=== PATIENT | male | born 1945 | race African-American/Black ===

== ENCOUNTER 2016-08-24 09:25 | Emergency (ER) | payer MEDICARE, BC ==
--- NOTE | ~2016-08-24 | US85 ---
[facility] A Service of [facility] & [facility] RADIOLOGY TEXT RESULTS PATIENT: BHAVNA MARTIN LOCATION: YA : 44 UNIT #: [id number] AGE: [address]: Temitope Perez MD SEX: M ORDER DR: [id number] [facility] [address] [place], [place] [address] [id number] E MR#: [id number] Acc #: [id number] NAME: BHAVNA MARTIN : 1945 SEX: M STUDY DATE/TIME: 08/24/2016 10:40 UNIT: YA ROOM: STUDY DESCRIPTION: [facility] [place] [employer] Attending Physician: Temitope Perez M.D. Ordering Physician: Temitope Perez M.D. Primary Care Physician: Milan Raymond M.D. MEDICAL IMAGING REPORT This report is preliminary unless electronic signature is present EXAM Left lower extremity venous Doppler. HISTORY Left lower extremity pain for 2 years. Numbness and tingling following 2 days. FINDINGS Color flow, grayscale, compression, and Doppler spectral wave form analysis was performed. Examination shows normal compressibility of the veins throughout with no intraluminal filling defects. There is normal phasicity of flow throughout. CONCLUSION Negative left lower extremity venous Doppler. Dictated by... Cyrus Cisneros M.D. THIS IS AN ELECTRONICALLY VERIFIED REPORT Cyrus Cisneros M.D. at 08/26/2016 5:03 PM ORLANDO/samanta TD: 08/24/2016 14:08 JOB #: [id number] MEDICAL IMAGING REPORT Page 1 of 1 COPY
[2016-08-24 09:12] LABS: BASOPHIL% 0.9 % (0-2.5); EOSINOPHIL# 0.2 X10e3 (0-0.7); EOSINOPHIL% 4.2 % (0.0-7.0); HEMATOCRIT 41.1 % (38.0-50.0); HEMOGLOBIN 13.8 gm/dL (13.0-16.0); LYMPHOCYTE# 1.4 X10e3 (1.0-3.5); LYMPHOCYTE% 30.6 % (17.0-45.0); MEAN CELL VOLUME 93.2 FL (83-96); MEAN CORPUSCULAR HEMOGLOBIN 31.2 PG (28-34); MEAN CORPUSCULAR HGB CONC 33.5 g/dL (30-36); MEAN PLATELET VOLUME 9.4 FL (6.5-11.5); MONOCYTE# 0.5 X10e3 (0-1.0); MONOCYTE% 11.7 % (3.0-12.0); NEUTROPHIL# 2.4 X10e3 (1.5-7.1); NEUTROPHIL% 52.6 % (40-75); PLATELET COUNT 108 X10e3 (140-420); RED BLOOD COUNT 4.41 X10e (3.90-5.60); RED CELL DISTRIBUTION WIDTH 16.1 % (11.0-15.5); WHITE BLOOD COUNT 4.5 X10e3 (4.0-10.5)
[2016-08-24 09:13] LABS: DIFF IND NO
[2016-08-24 09:22] LABS: ALBUMIN SERUM 4.4 g/dL (3.5-5.0); ALCOHOL BLOOD <5 mg/dL (0); ALKALINE PHOSPHATASE 68 U/L (32-92); ALT (SGPT) 32 U/L (10-40); AST (SGOT) 67 U/L (10-42); BILIRUBIN, DIRECT 0.3 mg/dL (0.0-0.2); BILIRUBIN,INDIRECT 1.7 mg/dL (0.0-0.9); BLOOD UREA NITROGEN 10 mg/dL (9-23); BUN/CREATININE RATIO 9.09; CARBON DIOXIDE 23 mmol/L (22-31); CHLORIDE 94 mmol/L (100-111); CREATININE SERUM 1.1 mg/dL (0.6-1.4); GLOM FILT RATE Estimated 77.3 mL/min (>60); GLUCOSE FASTING 107 mg/dL (70-110); MAGNESIUM 1.4 mg/dL (1.6-3.0); POTASSIUM 3.3 mmol/L (3.5-5.1); PROTEIN TOTAL SERUM 7.4 g/dL (6.0-8.3); SODIUM 136 mmol/L (135-145)
[~2016-08-24 09:25] MED LIST: ACETAMINOPHEN; AMLODIPINE BESY10 MG PO; ASPIRIN81 MG PO; ATIVAN0.5 MG; BACLOFEN10 MG PO; BENTYL10 MG PO; CARDIZEM SR PO; CENTRUM; CHLORDIAZEPOXID25 MG PO; CLARITIN10 M2 PO; CLARITIN10 M3 PO; CLONIDINE; COREG PO; COREG12.5 M1 PO; COREG12.5 MG PO; DILANTIN PO; ECOTRIN81 M1 PO; FLOMAX0.4 M1 PO; FOLIC ACID; FOLIC ACID PO; FOLIC ACID1 MG PO; GABAPENTIN300 M2 PO; GABAPENTIN300 MG PO; HAIR, SKIN & N1 EAC1 PO; IMODIUM2 MG; K-DUR20 ME1 PO; KEPPRA1000 MG PO; KEPPRA500 M1 PO; KEPPRA500 M2 PO; KETOPROFEN PO; LANOXIN PO; LIBRIUM25 MG PO; LIORESAL10 MG PO; LISINOPRIL PO; LISINOPRIL20 MG PO; LOPRESSOR PO; MAALOX SUSPENS355 ML; MAALOX SUSPENS355 ML PO; MEGA MULTIVITA1 EACH PO; MILK OF MAGNESIA; MULTI VITAMIN1 EACH PO; MULTI-VITAMIN1 EAC1 PO; NEURONTIN300 MG PO; NORVASC10 MG PO; PANTOPRAZOLE SO40 MG PO; PHENERGAN PO; PHENERGAN25 MG PO; PROTONIX; PROTONIX PO; SILVADENE TOP; STOOL SOFTENER250 MG PO; THIAMINE HCL100 M1 PO; THIAMINE HCL100 M2 PO; THIAMINE HCL100 MG PO; THIAMINE HCL50 MG; TOPAMAX25 M1 PO; TOPAMAX25 MG PO; TYLENOL325 M1 PO; UNKNOWN MEDS; VIAGRA PO; ZESTRIL40 MG PO; ZOFRAN ODT4 MG PO
== END 2016-08-24 11:15 | disposition home or self-care (01) ==
LOC: CED 09:25
PROVIDERS: Emergency Medicine
DX: M79.605 Pain in left leg (principal); F10.10 Alcohol abuse, uncomplicated; E87.6 Hypokalemia; E83.42 Hypomagnesemia; I48.91 Unspecified atrial fibrillation; F32.9 Major depressive disorder, single episode, unspecified; F41.9 Anxiety disorder, unspecified; R56.9 Unspecified convulsions; Z86.73 Personal history of transient ischemic attack (TIA), and cerebral infarction without residual deficits; Z88.0 Allergy status to penicillin; Z88.2 Allergy status to sulfonamides; Z88.8 Allergy status to other drugs, medicaments and biological substances; Z79.899 Other long term (current) drug therapy
CPT/HCPCS: 36415; 80048; 80076; 83735; 85025; 93971; 99283; 99284; G0480

== ENCOUNTER 2016-11-06 13:53 | Inpatient (IN) | payer MEDICARE, BC ==
--- NOTE | ~2016-11-06 | CO ---
Unit #: [id number] #: [id number] Patient: BHAVNA MARTIN [id number] [facility] [address] [facility]. [place], [place] [address] [id number] I MR#: [id number] NAME: BHAVNA MARTIN ROOM: 562 Age: 71 Sex: M Admission Date: 11/07/2016 : 1945 Attending Physician: Ava Huerta M.D. Primary Care Physician: Milan Raymond M.D. Consultation Date: 11/07/2016 CONSULTATION REPORT PRIMARY CARE PHYSICIAN Not listed. CONSULTING PHYSICIAN Dr. Ava Huerta. REASON FOR CONSULT Related to seizure. PATIENT IDENTIFICATION This is a 71-year-old right-handed male, evaluated in room 562 at [facility]. SOURCE OF INFORMATION Obtained from the patient as well as medical record. HISTORY OF PRESENT ILLNESS This is a 71-year-old right-handed male, with past medical history of seizure disorder, alcohol abuse, noncompliance, who presents to [facility] with report of seizure yesterday. The patient is a poor historian. Apparently, he had no events, where EMS was called for seizure activity. The patient, however, tells me that he was experiencing left leg pain and stiffness, and did not describe it as a typical seizure for him. He was apparently altered; whenever, he was brought in. His last drink was apparently a few days prior. He was given a liter of normal saline in the ER as well as 1 g of Keppra and was admitted for further evaluation and treatment. His home med list documents Dilantin 300 mg daily and Keppra 500 mg b.i.d.; however, his Dilantin level is less than 2.5. He admits to noncompliance with his medication and states that he has run out recently. Dilantin is listed on his home written med list, but he states he is not sure if he takes Dilantin. He states that he is supposed to be taking Keppra for sure, but has not been taking it as he states that he ran out. He has been seen on multiple admissions for noncompliance with his medication and also with alcohol abuse and withdrawal with DTs. Upon my evaluation of the patient earlier today, this was not discussed with me, as I was not able to speak with the nurse, but I did follow up with her. Apparently, he had an event this morning where Rapid Response was called. There was concern for possible seizure activity; however, was also concerned that the patient may have had a vasovagal response. He did not have any clear seizure activity. His heart rate was in the 180s. Initially, he told the nurse, he did feel good. He apparently had a near syncopal versus syncopal episode while sitting, but was able to come to with no postictal Unit #: [id number] #: [id number] Patient: BHAVNA MARTIN. There was no obvious seizure activity at that time. He has had no further events. Again, he was not postictal. Upon evaluation, the patient denies any complaints, states that he has chronic difficulty with balance and uses a cane and states he has chronic leg pain and numbness bilaterally. He had a head CT done without contrast on 11/06/2016 in the ER that shows moderate atrophy and chronic microvascular disease changes. No acute intracranial findings. EKG from this morning shows sinus tachycardia with a ventricular rate of 110 beats per minute. Urine drug screen is negative. He is currently alert and oriented to person and place. He has some difficulty with time, but he is able to answer, though it takes some effort. He is a poor historian regarding his history, but can answer most questions. PAST MEDICAL HISTORY 1. Multiple admissions at [facility] for alcohol withdrawal, but in the past has required ICU admission, also for seizures and noncompliance. He was last seen by Neurology in 2016 for noncompliance, seizures, and alcohol abuse. 2. Urinary tract infection. 3. Seizure disorder. 4. Possible TIA. 5. Peripheral neuropathy. 6. BPH. 7. Peripheral vascular disease. 8. Pancreatitis. 9. Atrial fibrillation, not on chronic anticoagulation. 10. Ankle surgery. 11. Shoulder surgery. 12. Circumcision. ALLERGIES 1. Penicillin. 2. Bactrim. HOME MEDICATIONS Include: 1. Flomax. 2. Magnesium. 3. Neurontin 300 mg p.o. daily. 4. Keppra 500 mg p.o. b.i.d. 5. Topamax 25 mg p.o. b.i.d. 6. Coreg. 7. Norvasc. 8. Dilantin 300 mg p.o. daily. 9. Lisinopril. 10. Folic acid. 11. Vitamin. SOCIAL HISTORY The patient lives with a friend, a roommate. He is a daily drinker. Denies illicit drug use or tobacco use. FAMILY HISTORY Positive for hypertension. REVIEW OF SYSTEMS A 14-point review of systems was done. Pertinent positives are as discussed above otherwise negative. Unit #: [id number] #: [id number] Patient: BHAVNA MARTIN PHYSICAL EXAMINATION VITAL SIGNS: Temperature 98.2. He has been afebrile. Pulse 103, respirations 16, blood pressure 122/82, oxygen saturation 100%. Height 5 feet and 11 inches. Weight 163 pounds. NEUROLOGIC: The patient is awake, alert, and oriented to person and place. He is oriented to time. He has difficulty with figuring out the date, but he can tell me the date correctly. He can name and tell me it is . He follows simple commands. No right or left confusion. No finger agnosia. No aphasia or dysarthria. Cranial nerve exam, no field cut appreciated. Eyes are conjugate without ptosis or nystagmus. Extraocular movements are intact. Sensation of face and scalp is intact. Strength of muscles of facial expression is intact. Hearing is intact to conversation. Tongue is midline. Uvula is midline. Palate elevation is normal. Head turning and shoulder shrug are unremarkable. Neck is supple. Motor exam, he demonstrates normal bulk and tone. His strength is essentially 5/5 globally with no focal deficits seen. Sensory exam, intact, however decreased sensation bilaterally distally in the lower extremities. Gait and Romberg deferred. Reflexes, unable to elicit. Toes are mute. Coordination, no past-pointing. No drift. DIAGNOSTIC STUDIES IMAGING STUDIES: Please see above. LABORATORY RESULTS: Sodium 137, potassium 3.3, chloride 98, CO2 of 25, glucose 102, BUN 9, creatinine 1.03, estimated GFR 86.8, calcium 8.9, AST 55, ALT 30, alkaline phosphatase 62, total protein 6.3, albumin 3.9, magnesium 1.5. White blood cell count 6.4, hemoglobin 12.7, hematocrit of 37.7, platelet count 122. TSH 0.61. CK 78. Dilantin level less than 2.5. Urine drug screen unremarkable. White count on arrival 7.5. IMPRESSION 1. Possible seizure. Regardless, the patient needs to take his medications. He admits to noncompliance. 2. Alcohol abuse and withdrawal. 3. Peripheral neuropathy. 4. History of atrial fibrillation. PLAN The patient recurrently presents with altered mental status and seizure activity due to noncompliance. Apparently, he takes Keppra and Dilantin at home. It is on his med list, but the patient is unsure. He certainly needs to take his medications and stop drinking or resume his home medication doses. The event this morning is questionable. Regardless, we will not make any medication adjustments as he has been noncompliant up until last evening. We will continue medications as he has not had any system. We will continue seizure precautions. Further recommendations to be made pending workup and further clinical course. Please call for any questions or issues. We thank you very much for allowing us to assist in the care of this patient. Dictated by... Mika MartelPKayleyRKayleyN. for Christina Montaño M.D. [facility]/sophia Unit #: [id number] #: [id number] Patient: BHAVNA MARTIN TD: 11/08/2016 11:47 JOB #: [id number] CONSULTATION REPORT Page 1 of 1 X Maggie Braun FINANCE MANAGER X CONSULTATION REPORT
--- NOTE | ~2016-11-06 | CT71 ---
[facility] A Service of [facility] RADIOLOGY TEXT RESULTS PATIENT: BHAVNA MARTIN LOCATION: C5 [address] : [birth year] UNIT #: [id number] AGE: [address]: Ava Huerta MD SEX: M ORDER DR: [id number] [facility] [address] [facility] [address] [facility] [place], [place] [address] [id number] E MR#: [id number] Acc #: [id number] NAME: BHAVNA MARTIN : 1945 SEX: M STUDY DATE/TIME: 11/06/2016 15:29 UNIT: [facility] ROOM: STUDY DESCRIPTION: CT Head Wo Contrast Attending Physician: Tommie Hills M.D. Ordering Physician: Tommie Hills M.D. Primary Care Physician: Milan Raymond M.D. MEDICAL IMAGING REPORT This report is preliminary unless electronic signature is present EXAMINATION Noncontrast CT head. DATE 11/06/2016 HISTORY 71-year-old male with confusion and possible seizure activity today. COMPARISON Noncontrast CT head, 04/12/2016. TECHNIQUE This CT exam was performed with one or more of the following radiation dose reduction techniques: automatic exposure control, adjustment of mA and/or kV according to patient size, and iterative reconstruction. FINDINGS Moderate generalized atrophy with compensatory prominence of ventricles and extraaxial spaces, similar to the prior exam. Hypodensities in the deep white matter of the brain are nonspecific but favored to represent changes of chronic microvascular disease and have a similar appearance to prior. No convincing CT evidence of acute or evolving infarct. Chronic bilateral maxillary sinus disease changes. Mild ethmoid and left sphenoid sinus mucosal thickening. Mastoid air cells are clear. No acute calvarial abnormality. No intracranial hemorrhage, mass lesion, mass effect or midline shift is appreciated. IMPRESSION 1. Moderate atrophy and chronic microvascular disease changes. No acute intracranial findings. [facility] A Service of [facility] & [facility] RADIOLOGY TEXT RESULTS PATIENT: BHAVNA MARTIN LOCATION: C5 5606-19 : [birth year] UNIT #: [id number] AGE: [address]: Ava Huerta MD SEX: M ORDER DR: Dictated by... Shaila Roy M.D. THIS IS AN ELECTRONICALLY VERIFIED REPORT Shaila Roy M.D. at 11/07/2016 8:36 AM DELVIN/lilian TD: 11/06/2016 16:58 JOB #: [id number] MEDICAL IMAGING REPORT Page 1 of 1 COPY
--- NOTE | ~2016-11-06 | DS ---
Unit #: [id number] #: [id number] Patient: BHAVNA MARTIN [id number] [address] [address] [id number] I MR#: [id number] NAME: BHAVNA MARTIN ROOM: 562 Age: 71 Sex: M Admission Date: 11/07/2016 : 1945 Discharge Date: Attending Physician: Camryn Hopper M.D. Primary Care Physician: Milan Raymond M.D. DISCHARGE SUMMARY DISCHARGE DIAGNOSES 1. Alcohol dependence with daily use with withdrawal. 2. Alcohol withdrawal seizures. 3. Hyperkalemia. 4. Noncompliance with medications. 5. Atrial fibrillation. Patient is not on anticoagulation likely secondary to chronic alcohol and high risk of falls. 6. Hypertension. 7. History of transient ischemic attack. 8. Peripheral neuropathy likely from alcohol abuse. 9. Benign prostatic hypertrophy. 10. Peripheral vascular disease. 11. History of pancreatitis. 12. Mild hyponatremia. 13. Hypophosphatemia. 14. Chronic thrombocytopenia likely from alcohol abuse. CONSULTATIONS 1. Dr. Grissom. 2. Dr. Montaño. PROCEDURES None. DIAGNOSTIC STUDIES LABORATORY: Sodium 134, potassium 4.6, creatinine 1.2, and phosphorus 1.8. WBC 5.9, hemoglobin 11.3, and platelets 92,000. Urine culture negative. IMAGING: CT of the head with moderate atrophy and chronic microvascular changes present. No acute changes. ALLERGIES Penicillin, sulfamethoxazole, trimethoprim. DISCHARGE MEDICATIONS 1. Flomax 0.4 p.o. daily. 2. Keppra 500 p.o. b.i.d. 3. Topamax 25 mg p.o. b.i.d. 4. Coreg 3.125 p.o. b.i.d. 5. Norvasc 10 daily. 6. Dilantin 300 at bedtime. 7. Multivitamin 1 tablet daily. 8. Thiamine 100 daily. Unit #: [id number] #: [id number] Patient: BHAVNA MARTIN 9. Folic acid 1 mg daily. HOSPITAL COURSE This is a 72-year-old admitted because of seizures and change in mental status. Change in mental status secondary to alcohol dependence and delirium tremors. Alcohol withdrawal with daily alcohol use and alcohol dependence. Seizures possibly from alcohol withdrawal. Patient is on Keppra and Dilantin. He does have a history of seizures. Patient was seen by Neurology who recommended to continue with Keppra and Dilantin. No new seizures during the hospitalization course. Anion gap metabolic acidosis likely from alcohol and starvation ketosis. Patient received IV fluids. Currently stable. History of TIA with peripheral neuropathy. Patient was seen by Physical Therapy who recommended rehab. Patient is being discharged to rehab. Discussed with the son, Ron. He agrees for him to go to rehab. Atrial fibrillation. Patient is not on anticoagulation please note likely from alcohol dependence and high risk of falls. DISPOSITION Discharge to rehab. Discharge time taken is 32 minutes. Dictated by... Bret Carmen/mimi TD: 11/12/2016 16:28 JOB #: [id number] DISCHARGE SUMMARY Page 1 of 1 X Camryn Hopper MD X DISCHARGE SUMMARY
--- NOTE | ~2016-11-06 | HP ---
Unit #: [id number] #: [id number] Patient: BHAVNA MARTIN [id number] [address] [address] [id number] I MR#: [id number] NAME: BHAVNA MARTIN ROOM: 562 Age: 71 Sex: M Admission Date: 11/06/2016 : 1945 Attending Physician: Tea Nava M.D. Primary Care Physician: Milan Raymond M.D. HISTORY AND PHYSICAL CHIEF COMPLAINT Seizure, altered mental status. HISTORY OF PRESENT ILLNESS The patient is a 71-year-old male with past medical history of alcohol abuse, seizure disorder, TIA, peripheral neuropathy, BPH, peripheral vascular disease, pancreatitis, atrial fibrillation, who presented to the emergency department for evaluation of the above. History is obtained via chart review and discussion with ER staff due to patient's altered mental status although he is able to provide some history. EMS was apparently called for seizure activity. The patient does not recall having a seizure. He states that he has not been taking his Keppra. He states that he has it but he just does not take it. He is a daily drinker. He told me that his last drink was three days ago, he told the ER it was yesterday. He denies any cough. No fever, no chest pain. He does report pain in his left arm and left leg. He was given 1 liter of normal saline in the emergency department as well as a gram of Keppra. He is being admitted to [facility] for evaluation and further treatment. Laboratory is notable for CO2 of 13 with an anion gap of 30. Urinalysis is still pending. PAST MEDICAL HISTORY 1. Admission to [facility] 04/12/2016 for alcohol abuse with delirium tremens. He also had urinary tract infection with Enterococcus. 2. History of alcohol withdrawal requiring ICU admission and IV Ativan. 3. Seizure disorder maintained on Keppra and possibly Dilantin although the patient denies taking either medication. 4. TIA. 5. Peripheral neuropathy. 6. BPH. 7. Peripheral vascular disease. 8. Pancreatitis. 9. History of atrial fibrillation not on chronic anticoagulation. PAST SURGICAL HISTORY 1. Ankle surgery. 2. Shoulder surgery. 3. Circumcision. ALLERGIES Unit #: [id number] #: [id number] Patient: BHAVNA MARTIN 1. Penicillin. 2. Bactrim. HOME MEDICATIONS Per the discharge summary from March 2016 include: 1. Flomax 0.4 mg daily. 2. Magnesium 400 mg t.i.d. 3. Neurontin 300 mg daily. 4. Keppra 500 mg b.i.d. 5. Topamax 25 mg b.i.d. 6. Coreg 12.5 mg daily. 7. Norvasc 10 mg daily. 8. Dilantin 30 mg daily. 9. Lisinopril 20 mg daily. 10. Folic acid 1 mg daily. 11. Thiamine 100 mg daily. Home medications will need to be reviewed and verified. SOCIAL HISTORY The patient is currently living with a friend. He is a daily drinker. He denies illicit drug use. No tobacco use. FAMILY HISTORY Notable for hypertension. REVIEW OF SYSTEMS A complete review of systems is negative except as indicated in the HPI. It is somewhat limited due to patient's altered mental status. PHYSICAL EXAMINATION VITAL SIGNS: Temperature 98, pulse 165, respirations 26, blood pressure 161/108, oxygen saturation 98% on room air. GENERAL: The patient is an male who is awake and alert in no acute distress. HEENT: Head is atraumatic. Mucous membranes are moist. NECK: Supple. Trachea is midline. LUNGS: Relatively clear to auscultation bilaterally with no increased work of breathing. HEART: Irregular. ABDOMEN: Soft, nontender. Bowel sounds present in all four quadrants. EXTREMITIES: Nontender with no pedal edema. NEUROLOGIC: Patient is oriented to person and place. He is somewhat tangential. PSYCHIATRIC: The patient is cooperative. He demonstrates poor insight. SKIN OF EXAMINED AREAS: Warm and dry. DIAGNOSTIC STUDIES LABORATORY: Arterial blood gas shows pH 7.399, pCO2 of 37.6, pO2 of 131 on 2 liters. Dilantin level is less than 2.5. Comprehensive metabolic panel notable for potassium of 3.4, chloride 94, CO2 is 13, anion gap is 30, glucose 168, AST 83, albumin 4.5. Alcohol level is less than 5. INR is 1. Complete blood count is notable for MCV of 100.7. Troponin is less than 0.05. IMAGING: CT of the head shows no acute intracranial findings. Chest x-ray shows no active pulmonary disease. Unit #: [id number] #: [id number] Patient: BHAVNA MARTIN CARDIOVASCULAR: EKG shows sinus tachycardia with a rate of 110 beats per minute. ASSESSMENT The patient is a 71-year-old male with: 1. Altered mental status. 2. Alcohol withdrawal. It is unclear when the patient took his last drink. He told the ER staff it was yesterday, he told me three to four days ago. He does have a history of DTs requiring IV Ativan and ICU admission in the past. 3. Seizure, possibly today. The patient has a seizure disorder and is supposed to be on Keppra and Dilantin. He is noncompliant. The patient received a gram of Keppra in the emergency department. 4. Anion gap metabolic acidosis with an anion gap of 30, possibly secondary to alcohol or starvation ketosis. Urinalysis is pending. 5. History of transient ischemic attack. 6. Peripheral neuropathy. 7. Benign prostatic hypertrophy. 8. Peripheral vascular disease. 9. History of pancreatitis. 10. History of atrial fibrillation. PLAN 1. Admit for observation to intermediate level. 2. Healthy-heart diet if passes bedside swallow. 3. TSH, B12 and folate. 4. Neuro checks. 5. Check urinalysis. 6. Urine toxicology screen. 7. Alcohol withdrawal protocol to start now. 8. Librium 25 mg p.o. q.6 h. with first dose now. 9. Keppra 500 mg IV q.12 h. 10. Seizure precautions. 11. Check magnesium level. 12. Potassium magnesium protocol. 13. Repeat BMP later this evening to follow up anion gap metabolic acidosis. 14. Check salicylate, methanol and ethylene glycol levels. 15. Check serum osmolality. 16. Serial cardiac enzymes. 17. Repeat labs in the morning. 18. SCDs for DVT prophylaxis. 19. Additional workup and consultants based on above. Dictated by Tea Nava M.D. Teresa TD: 11/06/2016 22:42 Unit #: [id number] #: [id number] Patient: BHAVNA MARTIN JOB #: [id number] HISTORY AND PHYSICAL Page 1 of 1 X Tea Nava MD X HISTORY AND PHYSICAL
--- NOTE | ~2016-11-06 | EKG ---
PATIENT: BHAVNA MARTIN UNIT #: [id number] Ventricular Rate: 110 BPM Atrial Rate: 110 BPM P-R Interval: 130 ms QRS Duration: 68 ms Q-T Interval: 360 ms QTC Calculation(Bezet): 487 ms P [place]: 30 degrees Calculated R [place]: -3 degrees Calculated T [place]: 5 degrees Diagnosis Line: Sinus tachycardia Diagnosis Line: Possible Left atrial enlargement Diagnosis Line: Poor R wave progression questionable lead position Diagnosis Line: or body habitus Diagnosis Line: Borderline ECG Diagnosis Line: When compared with ECG of 22-JUN-2016 12:36, Diagnosis Line: No significant change was found Diagnosis Line: Confirmed by CONNIE TARIQ MD ([id number]) on Diagnosis Line: 11/07/2016 7:25:43 AM INTERPRETING : DEE
--- NOTE | ~2016-11-06 | CO ---
Unit #: [id number] #: [id number] Patient: WILL NOBLES [id number] [facility] [address] [facility] [place], [place] [address] [id number] I MR#: [id number] NAME: WILL NOBLES ROOM: 562 Age: 71 Sex: M Admission Date: 11/07/2016 : 1945 Attending Physician: Camryn Hopper M.D. Primary Care Physician: Milan Raymond M.D. Consultation Date: 11/11/2016 CONSULTATION REPORT REASON FOR CONSULTATION Followup. DISCUSSION Mr. Will Nobles is a 71-year-old white male seen in room 562, bed 1, at [facility], on November 11, 2016. Patient was dressed in hospital attire and sitting comfortably in a chair. He continues to be confused and somewhat lethargic. Patient was admitted with alcohol abuse, alcohol intoxication, and currently having confusion. Patient has a history of DTs in the past. Patient was cooperative. He was irritable but denied any thoughts of harming self or others. He answered questions in short sentences and long latency. Patient denied any complaints, but according to staff, patient is still having fluctuation in his alertness. Patient's Librium was discontinued yesterday. Patient was last admitted in March 2016. There is a history of alcohol abuse but no diagnosis of dementia. Patient seems to be having some problems with memory. VITAL SIGNS Temperature 98.4, heart rate 95, respirations 16, blood pressure 117/91, and oxygen saturation 100%. REVIEW OF SYSTEMS Complete review of systems is unremarkable. MENTAL STATUS EXAMINATION General appearance: Patient was dressed casually and lying comfortably in a recliner chair. He was able to answer questions but slowly with long pauses. Patient is oriented to self and place only. Mood is labile and withdrawn. Thought process circumstantial. Thought content paranoid but denied any thoughts of harming self or others. Recent and remote memory poor. Language fair. Fund of knowledge poor. Insight and judgment are impaired. DIAGNOSES PSYCHIATRIC: 1. Alcohol use disorder, severe, F10.20. 2. Delirium, F05. 3. Psychosis not otherwise specified, F29.0. 4. Rule out major neurocognitive disorder secondary to Alzheimer disease with behavioral disturbances, F02.81. ASSESSMENT AND PLAN Unit #: [id number] #: [id number] Patient: WILL NOBLES 1. Supportive psychotherapy and psychoeducation provided to patient but patient unable to comprehend much. 2. Educated about benefits and side effects of medication and course and prognosis of illness. 3. Recommending at this time to continue with the current combination of medication. If needed, consider a low dose of haloperidol for the above-mentioned symptoms. 4. Please feel free to call with any questions at telephone number [phone]. 1. Dictated by... Bret Orr/mimi TD: 11/12/2016 16:07 JOB #: [id number] CONSULTATION REPORT Page 1 of 1 X Gelacio Grissom MD X CONSULTATION REPORT
--- NOTE | ~2016-11-06 | CO ---
Unit #: [id number] #: [id number] Patient: WILL NOBLES [id number] [address] [address] [id number] I MR#: [id number] NAME: WILL NOBLES ROOM: 562 Age: 71 Sex: M Admission Date: 11/07/2016 : 1945 Attending Physician: Ava Huerta M.D. Primary Care Physician: Milan Raymond M.D. CONSULTATION REPORT REASON FOR CONSULTATION Alcohol abuse, confusion. HISTORY OF PRESENT ILLNESS Mr. Will Nobles is a 71-year-old -Maur[place] male seen in room 562, bed one on 11/10/16. The patient dressed casually in hospital attire, lying comfortably in bed. The patient was able to answer questions appropriately, somewhat confused. The patient denied any thoughts of harming self or others or any psychotic symptoms. The patient's vital signs are 97.5, 94, 20, 139/84. The patient was assessed initially at [facility] on the and the patient was drinking one to one-half of three pints of alcohol daily for the last 35 years. The patient reported history of withdrawal symptoms, history of DTs, high blood pressure. The patient denied any suicidal or homicidal ideation at that time, presented for the detox symptoms. At that time, the patient's blood pressure was 155/102, pulse 99. BAL was 0.200. The patient scored 25 on CIWA scale and subsequently sent to [facility] where he was admitted. Patient currently on detox protocol, Librium, making progress. The patient denied any other complaints. PAST PSYCHIATRIC HISTORY Remarkable for a history of alcohol abuse. No history of other psychiatric illness. MEDICAL HISTORY History of TIA, peripheral neuropathy, BPH, peripheral vascular disease, pancreatitis, history of atrial fibrillation on chronic anticoagulation, seizure disorder. FAMILY HISTORY AND SOCIAL HISTORY The patient has a poor support system. No history of abuse. History of alcohol abuse, as mentioned above. No history of any illicit drug abuse. MEDICATION HISTORY 1. Flomax. 2. Magnesium. 3. Neurontin. 4. Keppra. 5. Topamax. 6. Coreg. 7. Norvasc. 8. Dilantin. 9. Lisinopril. 10. Folic acid. Unit #: [id number] #: [id number] Patient: WILL NOBLES 11. Thiamine. REVIEW OF SYSTEMS Complete review of systems is unremarkable except as mentioned above. MENTAL STATUS EXAMINATION VITAL SIGNS: 97.5, 94, 20, 139/84, oxygen saturation 100%. GENERAL APPEARANCE: Patient dressed casually, lying comfortably in bed. ATTENTION SPAN AND CONCENTRATION: Poor. SPEECH: Slow, long pauses. ORIENTATION: Oriented in place and person. MOOD AND AFFECT: Sad, dysphoric. THOUGHT PROCESS: Circumstantial. THOUGHT CONTENT: The patient denied any hallucination, delusions or any suicidal or homicidal ideation. RECENT AND REMOTRE MEMORY: Fair to slightly impaired. LANGUAGE: Fair. FUND OF KNOWLEDGE: Fair. INSIGHT AND JUDGMENT: Fair to slightly impaired. DIAGNOSIS Psychiatric: 1. Alcohol use disorder, severe, F10.20. 2. Delirium, F05, resolved. SECONDARY DIAGNOSIS Deferred. MEDICAL DIAGNOSIS Please refer to H and P. STRESSORS Psychosocial stressors. ASSESSMENT/PLAN 1. Supportive psychotherapy and psychoeducation provided to patient. 2. Educated about benefits and side effects of medication and course and prognosis of illness. 3. Advised to discontinue Librium at this time and we will closely monitor. If needed, consider other medication. 4. The patient to continue with the inpatient treatment and consider outpatient followup such as program at [facility] after discharge. Please feel free to call if any question. Telephone number [phone]. Dictated by... Bret Orr/hunter TD: 11/11/2016 06:06 JOB #: [id number] Unit #: [id number] #: [id number] Patient: WILL NOBLES CONSULTATION REPORT Page 1 of 1 X Gelacio Grissom MD CONSULTATION REPORT
--- NOTE | ~2016-11-06 | CR72 ---
[facility] A Service of [facility] & [facility] RADIOLOGY TEXT RESULTS PATIENT: BHAVNA MARTIN LOCATION: [facility] 562-01 : [birth year] UNIT #: [id number] AGE: [address]: Ava Huerta MD SEX: M ORDER DR: [id number] [facility] [address] [facility] [place], [place] [address] [id number] MR#: [id number] Acc #: [id number] NAME: BHAVNA MARTIN : 1945 SEX: M STUDY DATE/TIME: 11/06/2016 15:11 UNIT: [facility] ROOM: STUDY DESCRIPTION: CR Chest Single View Portable Attending Physician: Tommie Hills M.D. Ordering Physician: Tommie Hills M.D. Primary Care Physician: Milan Raymond M.D. MEDICAL IMAGING REPORT This report is preliminary unless electronic signature is present EXAM Portable chest. HISTORY Possible seizure today. TECHNIQUE Single view of the chest was obtained and compared with 04/12/2016. FINDINGS There is an old rib fracture on the left. No acute rib fractures are seen. The heart and mediastinum have a normal configuration except for tortuous aorta. Both lungs are clear. IMPRESSION Tortuous aorta. Old healed rib fracture on the left. No active pulmonary disease. Dictated by... Nish Grier M.D. THIS IS AN ELECTRONICALLY VERIFIED REPORT Nish Grier M.D. at 11/07/2016 10:30 AM RLF/gz TD: 11/06/2016 16:22 JOB #: [id number] MEDICAL IMAGING REPORT Page 1 of 1 COPY
--- NOTE | ~2016-11-06 | CO ---
Unit #: [id number] #: [id number] Patient: WILL NOBLES [id number] [facility] [address] [facility]. [place], [place] [address] [id number] I MR#: [id number] NAME: WILL NOBLES ROOM: 562 Age: 71 Sex: M Admission Date: 11/07/2016 : 1945 Attending Physician: Camryn Hopper M.D. Primary Care Physician: Milan Raymond M.D. Consultation Date: 11/12/2016 CONSULTATION REPORT REASON FOR CONSULTATION Followup. DISCUSSION Mr. Will Nobles is a 71-year-old male, seen for followup on 11/12/2016. The patient was seen in room 562, bed 1 at [facility]. The patient dressed casually in hospital attire, sitting comfortably in chair, pleasant and cooperative. The patient able to answer questions slowly with long pauses, slow response, poor memory, confused, guarded, and somewhat paranoid. The patient denied any thoughts of harming self or others. Denied any hallucinations. The patient was somewhat withdrawn, flat, sad, dysphoric mood. The patient's vital signs; temperature 97.5, pulse 88, respiratory rate 16, blood pressure 109/72, and oxygen saturation 100%. REVIEW OF SYSTEMS Complete review of systems unremarkable. MENTAL STATUS EXAMINATION General appearance; the patient dressed casually in hospital attire, sitting comfortably in chair. The patient did not show any aggression or agitation, somewhat withdrawn. Attention span and concentration, poor. Speech, slow in volume and rate. Oriented in self and place. Mood and affect, labile. Thought process, circumstantial. Thought content, guarded and paranoid, but denied any thoughts of harming self or others. Recent and remote memory, fair to poor. Language, fair. Fund of knowledge, fair. Insight and judgment, fair to slightly impaired. DIAGNOSES Psychiatric: Alcohol use disorder, severe, F10.20; delirium, F05, resolved; psychosis, not otherwise specified, F29.0; rule out major neurocognitive disorder secondary to dementia/chronic alcohol use with behavioral disturbances, F02.81. ASSESSMENT/PLAN 1. Supportive psychotherapy and psychoeducation provided to the patient. 2. Educated about benefits and side effects of medication and course and prognosis of illness. 3. Advised to continue with current combination of medication and make further adjustment of medication if needed. The patient will be going to rehab this week. Please feel free to call if any question, telephone #[phone]. Unit #: [id number] #: [id number] Patient: WILL NOBLSE Dictated by... Bret Orr/sophia TD: 11/13/2016 23:51 JOB #: [id number] CONSULTATION REPORT Page 1 of 1 X Gelacio Grissom MD X CONSULTATION REPORT
[2016-11-06 14:52] LABS: POC - CKMB 1.1 ng/mL (0.0-7.9); POC - TROPONIN <0.05 ng/mL (<=0.05)
[2016-11-06 14:57] LABS: BASOPHIL% 0.5 % (0-2.5); EOSINOPHIL% 0.3 % (0.0-7.0); HEMATOCRIT 41.9 % (38.0-50.0); HEMOGLOBIN 13.8 gm/dL (13.0-16.0); MEAN CELL VOLUME 100.7 FL (83-96); MEAN CORPUSCULAR HEMOGLOBIN 33.1 PG (28-34); MEAN CORPUSCULAR HGB CONC 32.9 g/dL (30-36); MEAN PLATELET VOLUME 9.3 FL (6.5-11.5); MONOCYTE# 0.8 X10e3 (0-1.0); MONOCYTE% 10.3 % (3.0-12.0); NEUTROPHIL# 4.6 X10e3 (1.5-7.1); NEUTROPHIL% 61.9 % (40-75); PLATELET COUNT 171 X10e3 (140-420); RED BLOOD COUNT 4.16 X10e (3.90-5.60); WHITE BLOOD COUNT 7.5 X10e3 (4.0-10.5)
[2016-11-06 14:58] LABS: DIFF IND NO
[2016-11-06 15:09] LABS: PARTIAL THROMBOPLASTIN TIME 22.9 SECONDS (23.5-31.3); PROTHROMBIN TIME (PATIENT) 11.3 SECONDS (10.0-11.7)
[2016-11-06 15:20] LABS: ALBUMIN SERUM 4.5 g/dL (3.5-5.0); ALKALINE PHOSPHATASE 75 U/L (32-92); ALT (SGPT) 38 U/L (10-40); AST (SGOT) 83 U/L (10-42); BILIRUBIN, DIRECT 0.5 mg/dL (0.0-0.2); BILIRUBIN,INDIRECT 1.2 mg/dL (0.0-0.9); BILIRUBIN,TOTAL 1.7 mg/dL (0.2-2.0); BLOOD UREA NITROGEN 12 mg/dL (9-23); CALCIUM SERUM 9.1 mg/dL (8.4-10.2); CARBON DIOXIDE 13 mmol/L (22-31); CHLORIDE 94 mmol/L (100-111); CREATININE SERUM 1.1 mg/dL (0.6-1.4); GLOM FILT RATE Estimated 77.3 mL/min (>60); GLUCOSE FASTING 168 mg/dL (70-110); POTASSIUM 3.4 mmol/L (3.5-5.1); PROTEIN TOTAL SERUM 7.4 g/dL (6.0-8.3); SODIUM 137 mmol/L (135-145)
[2016-11-06 15:21] LABS: ALCOHOL BLOOD <5 mg/dL (0)
[2016-11-06 16:42] LABS: ARTERIAL BLD GAS O2 SATURATION 97.7 % (90.0-100.0); ARTERIAL BLOOD GAS ALLEN TEST NORMAL; ARTERIAL BLOOD GAS ART SITE RIGHT RADIAL; ARTERIAL BLOOD GAS CARBOXY HB 0.9 %sat (0.0-9.0); ARTERIAL BLOOD GAS HCO3 23.3 mmol/L; ARTERIAL BLOOD GAS MET HB 0.6 %sat (0.0-2.0); ARTERIAL BLOOD GAS PCO2 37.6 mmHg (35.0-45.0); ARTERIAL BLOOD GAS pH 7.399 (7.350-7.450); ARTERIAL DRAW? YES
[2016-11-06 16:43] LABS: ARTERIAL BLOOD GAS DELIVERY NASAL CANNULA
[2016-11-06 19:04] LABS: URINE SOURCE CLEAN CATCH
[2016-11-06 19:07] LABS: AMPHETAMINE NEG (NEG); BARBITURATES NEG (NEG); BENZODIAZEPINES NEG (NEG); COCAINE NEG (NEG); MARIJUANA NEG (NEG); OPIATES NEG (NEG); TRICYCLIC ANTIDEPRESSANTS NEG (NEG); U METHADONE NEG (NEG)
[2016-11-06 19:11] LABS: URINE APPEARANCE CLEAR; URINE BILIRUBIN NEG (NEG); URINE BLOOD NEG (NEG); URINE COLOR YELLOW; URINE GLUCOSE NEG (NEG); URINE KETONE 1+ (NEG); URINE LEUKOCYTE ESTERASE NEG (NEG); URINE NITRATE NEG (NEG); URINE PROTEIN NEG (NEG); URINE SPECIFIC GRAVITY 1.016 (1.003-1.035)
[2016-11-06 19:15] LABS: CULTURE INDICATED? NO
[2016-11-06 19:26] LABS: BUN/CREATININE RATIO 11.11; CALCIUM SERUM 9.1 mg/dL (8.4-10.2); CREATININE SERUM 0.9 mg/dL (0.6-1.4); GLOM FILT RATE Estimated 98.5 mL/min (>60); MAGNESIUM 1.8 mg/dL (1.6-3.0); POTASSIUM 3.4 mmol/L (3.5-5.1); SALICYLATE <4.0 mg/dL
[2016-11-06 19:55] LABS: %MB 2.4 % (0.0-4.0); MB 1.9 ng/ml
[2016-11-06 20:17] LABS: FOLATE (FOLIC ACID) 6.6 ng/mL (>5.8)
[2016-11-07 01:57] LABS: BASOPHIL% 0.7 % (0-2.5); EOSINOPHIL# 0.1 X10e3 (0-0.7); EOSINOPHIL% 0.8 % (0.0-7.0); HEMATOCRIT 37.7 % (38.0-50.0); HEMOGLOBIN 12.7 gm/dL (13.0-16.0); LYMPHOCYTE# 1.8 X10e3 (1.0-3.5); LYMPHOCYTE% 28.8 % (17.0-45.0); MEAN CELL VOLUME 98.1 FL (83-96); MEAN CORPUSCULAR HGB CONC 33.6 g/dL (30-36); MEAN PLATELET VOLUME 8.5 FL (6.5-11.5); MONOCYTE# 0.9 X10e3 (0-1.0); MONOCYTE% 13.8 % (3.0-12.0); NEUTROPHIL# 3.6 X10e3 (1.5-7.1); NEUTROPHIL% 55.9 % (40-75); PLATELET COUNT 122 X10e3 (140-420); RED BLOOD COUNT 3.84 X10e (3.90-5.60); RED CELL DISTRIBUTION WIDTH 15.2 % (11.0-15.5); WHITE BLOOD COUNT 6.4 X10e3 (4.0-10.5)
[2016-11-07 02:01] LABS: DIFF IND NO
[2016-11-07 02:47] LABS: %MB 1.7 % (0.0-4.0); MB 1.5 ng/ml
[2016-11-07 03:37] LABS: ALBUMIN SERUM 3.9 g/dL (3.5-5.0); BILIRUBIN,TOTAL 2.7 mg/dL (0.2-2.0); CALCIUM SERUM 8.9 mg/dL (8.4-10.2); GLOM FILT RATE Estimated 86.8 mL/min (>60); MAGNESIUM 1.5 mg/dL (1.6-3.0); POTASSIUM 3.3 mmol/L (3.5-5.1); PROTEIN TOTAL SERUM 6.3 g/dL (6.0-8.3)
[2016-11-08] MEDS ORDERED: BACLOFEN10 MG PO (07:34)
[2016-11-08] MEDS ORDERED: COREG12.5 MG PO (07:35)
[2016-11-08] MEDS ORDERED: FOLIC ACID1 MG PO (07:36)
[2016-11-08] MEDS ORDERED: THIAMINE HCL100 M2 PO (07:40)
[2016-11-08] MEDS ORDERED: GABAPENTIN300 MG PO (07:41)
[2016-11-08] MEDS ORDERED: LISINOPRIL20 MG PO (07:42)
[2016-11-08 08:11] LABS: ALBUMIN SERUM 3.6 g/dL (3.5-5.0); BILIRUBIN,TOTAL 1.2 mg/dL (0.2-2.0); CREATININE SERUM 1.2 mg/dL (0.6-1.4); GLOM FILT RATE Estimated 69.6 mL/min (>60); MAGNESIUM 1.9 mg/dL (1.6-3.0); POTASSIUM 3.3 mmol/L (3.5-5.1); PROTEIN TOTAL SERUM 6.2 g/dL (6.0-8.3)
[2016-11-08 08:13] LABS: HEMATOCRIT 34.9 % (38.0-50.0); HEMOGLOBIN 11.6 gm/dL (13.0-16.0); MEAN CELL VOLUME 100.6 FL (83-96); MEAN CORPUSCULAR HEMOGLOBIN 33.4 PG (28-34); MEAN CORPUSCULAR HGB CONC 33.2 g/dL (30-36); MEAN PLATELET VOLUME 9.9 FL (6.5-11.5); RED BLOOD COUNT 3.47 X10e (3.90-5.60); RED CELL DISTRIBUTION WIDTH 14.8 % (11.0-15.5); WHITE BLOOD COUNT 4.5 X10e3 (4.0-10.5)
[2016-11-08 08:18] LABS: PROTHROMBIN TIME (PATIENT) 11.3 SECONDS (10.0-11.7)
[2016-11-09 06:17] LABS: HEMATOCRIT 33.7 % (38.0-50.0); HEMOGLOBIN 11.3 gm/dL (13.0-16.0); MEAN CELL VOLUME 100.1 FL (83-96); MEAN CORPUSCULAR HEMOGLOBIN 33.5 PG (28-34); MEAN CORPUSCULAR HGB CONC 33.4 g/dL (30-36); MEAN PLATELET VOLUME 10.1 FL (6.5-11.5); RED BLOOD COUNT 3.37 X10e (3.90-5.60); RED CELL DISTRIBUTION WIDTH 15.1 % (11.0-15.5); WHITE BLOOD COUNT 5.9 X10e3 (4.0-10.5)
[2016-11-09 06:55] LABS: ALBUMIN SERUM 3.6 g/dL (3.5-5.0); BILIRUBIN,TOTAL 0.5 mg/dL (0.2-2.0); BUN/CREATININE RATIO 10.9; CREATININE SERUM 1.1 mg/dL (0.6-1.4); GLOM FILT RATE Estimated 77.3 mL/min (>60); MAGNESIUM 1.6 mg/dL (1.6-3.0); POTASSIUM 4.4 mmol/L (3.5-5.1); PROTEIN TOTAL SERUM 5.9 g/dL (6.0-8.3)
[2016-11-10 07:49] LABS: BUN/CREATININE RATIO 11.81; CALCIUM SERUM 10.1 mg/dL (8.4-10.2); CREATININE SERUM 1.1 mg/dL (0.6-1.4); GLOM FILT RATE Estimated 77.3 mL/min (>60); MAGNESIUM 1.8 mg/dL (1.6-3.0); POTASSIUM 5.4 mmol/L (3.5-5.1)
[2016-11-11 08:17] LABS: BUN/CREATININE RATIO 12.14; CALCIUM SERUM 9.6 mg/dL (8.4-10.2); CREATININE SERUM 1.4 mg/dL (0.6-1.4); GLOM FILT RATE Estimated 57.8 mL/min (>60); MAGNESIUM 1.7 mg/dL (1.6-3.0); POTASSIUM 4.8 mmol/L (3.5-5.1)
[2016-11-12 07:54] LABS: BUN/CREATININE RATIO 15.83; CALCIUM SERUM 10.1 mg/dL (8.4-10.2); CREATININE SERUM 1.2 mg/dL (0.6-1.4); GLOM FILT RATE Estimated 69.6 mL/min (>60); MAGNESIUM 1.7 mg/dL (1.6-3.0); PHOSPHOROUS 1.8 mg/dL (2.5-4.6); POTASSIUM 4.6 mmol/L (3.5-5.1)
== END 2016-11-12 19:23 | DRG 897 ==
LOC: CED 13:53 → C5B 18:20 → CED 18:20 → CEDOF 18:20 → C5B 18:20 → CEDOF 18:35 → CED 18:35 → CEDOF 18:35 → C5B 18:35 → CEDOF 20:03 → C5B 20:03 → CEDOF 11-07 14:15 → C5B 11-07 14:15
PROVIDERS: Emergency Medicine; Family Medicine; Internal Medicine; Internal Medicine Endocrinology, Diabetes & Metabolism
PROC: 05H533Z Insertion of Infusion Device into Right Subclavian Vein, Percutaneous Approach (ICD-10-PCS; principal; 2016-11-08)
PROC: B546ZZA Ultrasonography of Right Subclavian Vein, Guidance (ICD-10-PCS; 2016-11-08)
DX: F10.239 Alcohol dependence with withdrawal, unspecified (principal); E87.2 Acidosis; F05 Delirium due to known physiological condition; D69.59 Other secondary thrombocytopenia; E83.39 Other disorders of phosphorus metabolism; G40.509 Epileptic seizures related to external causes, not intractable, without status epilepticus; I48.91 Unspecified atrial fibrillation; G62.1 Alcoholic polyneuropathy; E87.5 Hyperkalemia; E87.1 Hypo-osmolality and hyponatremia; F02.81 Dementia in other diseases classified elsewhere, unspecified severity, with behavioral disturbance; N40.0 Benign prostatic hyperplasia without lower urinary tract symptoms; I73.9 Peripheral vascular disease, unspecified; F29 Unspecified psychosis not due to a substance or known physiological condition; Z88.0 Allergy status to penicillin; Z86.73 Personal history of transient ischemic attack (TIA), and cerebral infarction without residual deficits; M62.3 Immobility syndrome (paraplegic); Z91.14 Patient's other noncompliance with medication regimen; Y90.0 Blood alcohol level of less than 20 mg/100 ml
CPT/HCPCS: 36415; 36600; 70450; 71010; 80048; 80053; 80076; 80185; 80307; 81003; 82550; 82553; 82607; 82693; 82746; 82803; 82947; 83735; 83930; 84100; 84132; 84443; 84484; 84600; 85025; 85027; 85610; 85730; 87086; 93005; 96361; 96374; 97116; 97163; 97166; 97530; 97535; 99285; G0480; G8978-GP; G8979-GP; G8980-GP; G8987-GO; G8988-GO; J1953; J3411; J3475; J7042

== ENCOUNTER 2017-01-08 09:41 | Inpatient (IN) | payer MEDICARE, BC ==
[~2017-01-08] VITALS: Ht 182.9 cm; Wt 78.2 kg
--- NOTE | ~2017-01-08 | CO ---
Unit #: [id number] #: [id number] Patient: BHAVNA MARTIN [id number] [address] [address] [id number] I MR#: [id number] NAME: BHAVNA MARTIN ROOM: CICCU3 Age: 71 Sex: M Admission Date: 01/08/2017 : 1945 Attending Physician: Dre Ayon M.D. Primary Care Physician: Milan Raymond M.D. Consultation Date: 01/08/2017 CONSULTATION REPORT REASON FOR CONSULT ICU management. CHIEF COMPLAINT Seizure. HISTORY OF PRESENT ILLNESS This is a 71-year-old -[place] gentleman with past medical history significant for alcohol abuse, seizure disorder, TIA, peripheral neuropathy, pancreatitis, afib, who presented to the emergency room with seizures. Patient is currently intubated and sedated and unable to provide any history. However, per report, upon presentation to the emergency room patient was seizing and he had about four to five episodes while he was there. Apparently friend called EMS but gave no information at the time. Patent had multiple admissions for similar presentation in the past. PAST MEDICAL HISTORY 1. Alcohol abuse. 2. DTs. 3. Seizure disorder. 4. TIA. 5. Peripheral neuropathy. 6. BPH. 7. Peripheral vascular disease. 8. Pancreatitis. 9. Afib. PAST SURGICAL HISTORY 1. Right ankle surgery. 2. Right shoulder surgery. 3. Circumcision five years ago. SOCIAL HISTORY Patient lives with a friend. He is a daily drinker; no history of drug abuse or smoking. FAMILY HISTORY Hypertension. ALLERGIES Penicillin and Bactrim. Unit #: [id number] #: [id number] Patient: BHAVNA MARTIN HOME MEDICATION 1. Flomax. 2. Topamax. 3. Norvasc. 4. Keppra. 5. Dilantin. 6. Baclofen. 7. Folic acid. 8. Neurontin. 9. Lisinopril. REVIEW OF SYSTEMS Unable to obtain from the patient due to his condition. PHYSICAL EXAMINATION GENERAL: The patient is intubated, sedated. VITAL SIGNS: Blood pressure 152/62. Respiratory rate 18. O2 saturation 99%. HEENT: Normocephalic and atraumatic. PERRLA. EOMI. NECK: Supple. No JVD. No lymphadenopathy. CHEST: Bilateral fine rhonchi mainly in the left side. HEART: S1, S2. No murmur, gallops or rubs. ABDOMEN: Soft, nontender. Bowel sound is positive. No hepatosplenomegaly. EXTREMITIES: No edema or cyanosis. SKIN: No rashes. QUALITY ASSURANCE ANALYST: Awake but intubated. He is following simple commands. No focal motor/sensory deficit. DIAGNOSTIC STUDIES LABORATORY: Creatinine 1.3, calcium 8.2, lactic acid 11, white blood count 7.4, hemoglobin 11.8. IMAGING: Chest x-ray is consistent with aspiration pneumonia. ASSESSMENT 1. Acute hypoxic respiratory failure. 2. Anion gap metabolic acidosis. 3. Status epilepticus. 4. Alcohol withdrawal. 5. Acute kidney injury. 6. Noncompliance. 7. Seizure disorder. PLAN 1. Patient will be continued on the vent but spontaneous breathing trial will be attempted with hopefully possible extubation today. 2. CIWA protocol. 3. Clindamycin for aspiration pneumonia. 4. IV hydration. Will follow lactic acid and urine output very closely. 5. Bronchodilator and mucolytics. 6. Diet once more appropriate. 7. DVT and GI prophylaxis. I oliver like to thank you for allowing me to be part of this patient's care. Unit #: [id number] #: [id number] Patient: BHAVNA MARTIN Dictated by... Bret Tavera TD: 01/08/2017 15:09 JOB #: [id number] CONSULTATION REPORT Page 1 of 1 X KWADWO BURROUGHS MD CONSULTATION REPORT
--- NOTE | ~2017-01-08 | DS ---
Unit #: [id number] #: [id number] Patient: BHAVNA MARTIN [id number] [address] [address] [id number] I MR#: [id number] NAME: BHAVNA MARTIN ROOM: 217 Age: 71 Sex: M Admission Date: 01/08/2017 : 1945 Discharge Date: Attending Physician: Ava Huerta M.D. Primary Care Physician: Milan Raymond M.D. DISCHARGE SUMMARY ADDENDUM DISPOSITION Discharge pending rehab placement. HOSPITAL COURSE Please see transfer of care summary from 01/18/2017 for initial part of hospital course. Essentially from 01/18/2017 to 01/23/2017 patient was transferred out of ICU, placed on med/surg floor and no acute events were noted. He was placed on routine medications. Pulmonary services continued to follow the patient. PT and OT services continues to recommend rehab. Disposition and final discharge to rehab will be pending later this afternoon once a bed availability and/or insurance logistics have been taken care of. FINAL DISCHARGE DIAGNOSES 1. Acute hypoxic respiratory failure. 2. Aspiration pneumonia. 3. Seizures secondary to noncompliance with medications. 4. Alcohol abuse/intoxication. 5. Enterococcus urinary tract infection. 6. Status epilepticus on admission secondary to noncompliance. 7. Atrial fibrillation, no anticoagulation secondary to frequent falls and noncompliance. 8. Anemia. 9. Mild to moderate tricuspid regurgitation. 10. Likely mild to moderate dementia secondary to chronic alcohol abuse. 11. Acute kidney injury on admission, now improved. DIAGNOSTIC STUDIES LABORATORY: Baseline creatinine at the time of discharge 1.3, GFR is 63, hemoglobin 10.1, platelets 678, white count 7.7 at time of discharge. FINAL DISCHARGE MEDICATIONS 1. Sodium bicarbonate 650 mg p.o. q.8. Discontinue on 01/24/2017. 2. DuoNeb aerosol solution q.6 h. scheduled. 3. Flomax 0.4 mg p.o. q.h.s. 4. Tylenol 650 mg p.o. q.6 p.r.n. 5. Milk of mag 30 ml p.o. q.6 p.r.n. 6. Neurontin 300 mg p.o. q. day. 7. Vimpat 100 mg p.o. b.i.d. 8. Keppra 500 mg p.o. b.i.d. 9. Topamax 25 mg p.o. b.i.d. 10. Coreg 12.5 mg p.o. b.i.d. Unit #: [id number] #: [id number] Patient: BHAVNA MARTIN 11. Norvasc 10 mg p.o. q. day. 12. Senokot S one tablet p.o. b.i.d. 13. MiraLAX 17 g mixed with 8 pounces of water drink daily. 14. Dilantin 100 mg p.o. q.8. 15. Clonidine 0.1 mg p.o. q.8. 16. Multivitamin daily. 17. Melatonin 3 mg p.o. q.h.s. 18. Protonix 40 mg p.o. q. day. 19. Baclofen 10 mg p.o. q.8 p.r.n. 20. Folic acid 1 mg p.o. q.a.m. 21. Thiamine 100 mg p.o. q.a.m. DISCHARGE CONDITION Stable. DISCHARGE DISPOSITION Rehab for ongoing care. LONG-TERM PROGNOSIS Long-term prognosis of this patient is guarded/poor secondary to longstanding history of noncompliance as well as recurrent alcohol abuse. Chance of readmission is significantly elevated. Patient as well as family are well aware of the patient's overall poor prognosis. Dictated by... Bret Mendenhall/jose TD: 01/23/2017 18:06 JOB #: [id number] DISCHARGE SUMMARY Page 1 of 1 X Ava Huerta MD X DISCHARGE SUMMARY
--- NOTE | ~2017-01-08 | CR72 ---
[facility] A Service of [facility] & [facility] RADIOLOGY TEXT RESULTS PATIENT: BHAVNA MARTIN LOCATION: [address] : [birth year] UNIT #: [id number] AGE: [address]: Ava Huerta MD SEX: M ORDER DR: [id number] [facility] [address]. [place], [place] [address] [id number] I MR#: [id number] Acc #: [id number] NAME: BHAVNA MARTIN : 1945 SEX: M STUDY DATE/TIME: 01/16/2017 UNIT: [facility] ROOM: [facility] STUDY DESCRIPTION: CR Chest Single View Portable Attending Physician: Ava Huerta M.D. Ordering Physician: Suzan Ayon M.D. Primary Care Physician: Milan Raymond M.D. MEDICAL IMAGING REPORT This report is preliminary unless electronic signature is present EXAM Chest portable 01/16/2017 1042 hours HISTORY 71-year-old man with shortness of air, respiratory failure, aspiration. Symptoms began on 01/08/2017. COMPARISON 01/15/2017 FINDINGS Single upright portable view of the chest is performed. The patient's chin obscures the lower neck in the superior mediastinum. No endotracheal tube is seen. There is an enteric tube present extending at least to the mid body of the stomach with tip not included in the field of view. There is a right subclavian catheter with tip in the mid right atrium unchanged. Lung volumes are low with patchy bibasilar densities, stable on the right and improved on the left. IMPRESSION 1. Right subclavian catheter and enteric tube are unchanged. Endotracheal tube is no longer visualized. 2. Stable patchy density at the right lung base with decrease in left basilar airspace density, likely improving pneumonia or edema. There is no effusion or pneumothorax. Dictated by... Chaya Lovett M.D. THIS IS AN ELECTRONICALLY VERIFIED REPORT Chaya Lovett M.D. at 01/16/2017 12:52 PM [facility] A Service of [facility] RADIOLOGY TEXT RESULTS PATIENT: BHAVNA MARTIN LOCATION: CICCU2 CICCU2-08 : [birth year] UNIT #: [id number] AGE: [address]: Ava Huerta MD SEX: M ORDER DR: Brianna TD: 01/16/2017 12:27 JOB #: [id number] MEDICAL IMAGING REPORT Page 1 of 1 COPY
--- NOTE | ~2017-01-08 | TOC ---
Unit #: [id number] #: [id number] Patient: BHAVNA MARTIN [id number] [address] [place], [place] [address] [id number] I MR#: [id number] NAME: BHAVNA MARTIN ROOM: 306 Age: 71 Sex: M Admission Date: 01/08/2017 : 1945 Attending Physician: Ava Huerta M.D. Primary Care Physician: Milan Raymond M.D. TRANSFER OF CARE SUMMARY DATE 01/18/17 REASON FOR ADMISSION Seizures. HISTORY OF PRESENT ILLNESS Patient is a relatively noncompliant 71-year-old -[place] male who was brought secondary to intractable seizure activity while at home. Respiratory status initially was compromised while evaluated in the emergency room. He was subsequently intubated, sedated and he was placed in the ICU. In regards to seizure disorder, patient was placed on IV medications. Discussion with Dr. Montaño or neurology services. Secondary to his longstanding history of alcohol abuse, he was placed on alcohol withdrawal protocol. Consultation was placed to Dr. Stoner and associates secondary to respiratory compromise as well as airway compromise and/or acute hypoxic respiratory failure. Presumed aspiration pneumonia secondary to intractable seizures as well as alcohol abuse. Patient was placed on appropriate medications, gradually weaned and extubated. Dobbhoff tube initially was placed secondary to difficulty with swallowing. Since that time, speech therapy services have recommended him for a modified diet. At this point in time, he is currently extubated. He is on a modified diet. He is on IV antibiotics per pulmonary services as well as IV seizure medications per neurology services. He does have a prior history of atrial fibrillation but is on no chronic anticoagulation secondary to frequent falls, alcohol abuse as well as noncompliance. Likely, within the next 24-48 hours, patient will be transitioned to telemetry floor and ultimately consideration may be given for the patient to be transitioned to a rehab facility. His buttermaker helper prognosis is guarded/poor secondary to ongoing alcohol abuse as well as noncompliance with medications. He has had numerous hospital admissions secondary to the same. This has been reviewed with him in detail. Unit #: [id number] #: [id number] Patient: BHAVNA MARTIN CLINICAL DIAGNOSIS Current clinical diagnosis as of 01/18/2017: 1. Acute hypoxic respiratory failure on admission, now improved. 2. Aspiration pneumonia, likely secondary to intractable seizures versus alcohol intoxication. 3. Alcohol abuse. 4. Enterococcus UTI. 5. Seizure disorder/status epilepticus secondary to noncompliance of medications. 6. Prior history of atrial fibrillation, no anticoagulation secondary to frequent falls, noncompliance. 7. Anemia. 8. Mild to moderate tricuspid regurgitation. Final discharge summary and medications will be dictated by my associate at time of discharge. Dictated by... Ava Huerta M.D. JEFFREY/elham TD: 01/20/2017 18:19 JOB #: [id number] TRANSFER OF CARE SUMMARY Page 1 of 1 X Ava Huerta MD X TRANSFER OF CARE SUMMARY
--- NOTE | ~2017-01-08 | CO ---
Unit #: [id number] #: [id number] Patient: BHAVNA MARTIN [id number] [facility] [address] [facility]. [place], [place] [address] [id number] I MR#: [id number] NAME: BHAVNA MARTIN ROOM: CICCU3 Age: 71 Sex: M Admission Date: 01/08/2017 : 1945 Attending Physician: Ava Huerta M.D. Primary Care Physician: Milan Raymond M.D. Consultation Date: 01/08/2017 CONSULTATION REPORT REASON FOR CONSULTATION Seizure. PATIENT IDENTIFICATION This is a 71-year-old apparently right-handed, male, who is evaluated in Room ER T3 at [place]. SOURCE OF INFORMATION The medical records. This is the seventh time I am seeing this patient for seizures and other problems. PROBLEM LIST 1. His problem list right now is he had multiple seizures, and diagnosed as status epilepticus and treated accordingly. 2. The biggest issue I see with this gentleman is noncompliance. 3. Possible TIAs in the past. 4. Peripheral neuropathy. 5. Benign prostatic hypertrophy. 6. Peripheral vascular disease. 7. History of pancreatitis. 8. History of atrial fibrillation. 9. History of ankle surgery. 10. Shoulder surgeries and circumcision. 11. He was last seen on 11/07/2016 and he at that time was admitted and then discharged and diagnosis was alcohol dependence with daily use with withdrawal and possible withdrawal related seizures. He saw Psychiatry at that time. HISTORY OF PRESENT ILLNESS This is a 71-year-old gentleman, who is actually known to our service. We have seen him several times. He comes in here and he had multiple seizures at home. Apparently, some family member or friend reported that he had a prolonged seizure and then there was another one and he had a witnessed seizure here in the ER and to protect his airway, he was intubated. When I saw him around noon, he was withdrawing to pain. He is sort of looked around when I called his name. There was nothing suggesting active seizure or other issues at present. His biggest issue is noncompliance and we are trying to find out what happened. Also looking at his medication list and there is one provided which I do not know how it got to the sheet. He is on Keppra 500 mg b.i.d. He is also on Topamax 25 mg b.i.d. and other medication, but he was on Dilantin Unit #: [id number] #: [id number] Patient: BHAVNA MARTIN 300 mg daily, and his level was less than 2.5, so he has either been taken off or he is not taking it. Also his compliance is in question. I do not know who he has followed up, so he was treated as possible status epilepticus and aggressively treated. He was tachycardic, but all things improved and like I said, he is turning around. He was given Versed. Nothing suggesting falls or injuries. Exposure to other medications or change in medication, details not known. Apparently, he does still drink. PAST MEDICAL HISTORY As discussed above. PAST SURGICAL HISTORY As discussed above. ALLERGIES Penicillin and Bactrim. MEDICATIONS Keppra 500 mg b.i.d., folic acid 1 mg, topiramate 25 mg, thiamine 100 mg, Flomax, Coreg, Norvasc, Protonix, loratadine. Based on his prior discharge he was supposed to be on Flomax, Keppra, Topamax, Coreg, Norvasc, Dilantin, multivitamin, thiamine, folic acid. FAMILY HISTORY Based on previous records, hypertension. SOCIAL HISTORY Apparently lives with a friend and a roommate. He apparently was a daily drinker. In the previous records, there is nothing suggesting drug use or smoking. REVIEW OF SYSTEMS Could not be obtained because of his present intubated and sedated state. PHYSICAL EXAMINATION VITAL SIGNS: The last one I have from 10:52 a.m. to 11:25; temperature 98.2, pulse 128 to 140, respirations 16, blood pressure 129/84, O2 saturations 100%. Weight of 175 pounds. NEUROLOGIC: The patient is sedated and intubated. He does respond to voice. He did not follow commands. He respond to painful stimuli. Cranial nerve examination; he does have corneals, sluggish pupils. [place] of vision are questionable. I did not see any dysconjugate eye movements. I did not see any focal weakness. Hearing seemed to be intact. Tongue was midline. I could not visualize his oropharynx or uvula. Head turning was spontaneous. No neck stiffness was seen. Motor examination demonstrated normal bulk and tone. He seem to withdraw to pain. I do not see any twitching or active movements. Sensory examination respond to pain. Unit #: [id number] #: [id number] Patient: BHAVNA MARTIN I could not get any reflexes. Toes are downgoing, but his feet withdrew. Gait and coordination could not be evaluated. DIAGNOSTIC STUDIES LABORATORY RESULTS: Reviewed. His pH was 7.12. Sodium 146. Lactic acid was 11.1, the question is, is this secondary to seizures or otherwise. His white count is 7.4, H and H of 11.8 and 34.6, platelet count was 136. IMPRESSION 1. Multiple seizure. The question is, is this noncompliance related which is a possibility. We do not know his baseline seizure frequency. 2. We do not know his medication use and other problems, so I will await for his friends to arrive. In the meantime, we will treat it as possible status epilepticus and see how things go. I am going to continue Dilantin, Keppra, and Vimpat till I know the exact medication that he is supposed to take and we will see how things change. I will keep you informed. Call me for any other questions, issues, or concerns and again the first order of the day is to have him stop seizure which looks like he has. 3. Airway breathing and circulation which were working on. 4. Try to find out his psychosocial situation and medication intake and why if any medication was changed and based on that decide future course of action. I will follow him while he is here. Call me for any other questions, issues, or concerns. Dictated by... Bret Beltran/sophia TD: 01/09/2017 02:53 JOB #: [id number] CONSULTATION REPORT Page 1 of 1 X Christina Montaño MD CONSULTATION REPORT
--- NOTE | ~2017-01-08 | CR72 ---
[facility] A Service of [facility] & [facility] RADIOLOGY TEXT RESULTS PATIENT: BHAVNA MARTIN LOCATION: [address] : [birth year] UNIT #: [id number] AGE: [address]: Ava Huerta MD SEX: M ORDER DR: [id number] [facility] [address] [facility]. [place], [place] [address] [id number] I MR#: [id number] Acc #: [id number] NAME: BHAVNA MARTIN : 1945 SEX: M STUDY DATE/TIME: 01/13/2017 5:12 UNIT: [facility] ROOM: [facility] STUDY DESCRIPTION: CR Chest Single View Portable Attending Physician: Ava Huerta M.D. Ordering Physician: Barbara Stoner M.D. Primary Care Physician: Milan Raymond M.D. MEDICAL IMAGING REPORT This report is preliminary unless electronic signature is present EXAM Portable chest HISTORY Respiratory failure today. Intubated. FINDINGS Right subclavian central line tip is in the right atrium approximately 3 cm beyond the junction of the SVC and right atrium and the line has apparently been pulled back slightly compared to yesterday. ETT tip is approximately 4 cm above the jacquelyn. Feeding tube extends into the stomach. Partial clearing of the left base with mild left basilar atelectasis or infiltrate. Remainder of the lungs are clear. Dictated by... Damion Huffman M.D. THIS IS AN ELECTRONICALLY VERIFIED REPORT Damion Huffman M.D. at 01/13/2017 10:31 PM JENNIFFER/enrique TD: 01/13/2017 12:46 JOB #: [id number] MEDICAL IMAGING REPORT Page 1 of 1 COPY
--- NOTE | ~2017-01-08 | FU ---
[facility] Nutrition Therapy DATE: 01/17/17 Patient: BHAVNA MARTIN Physician: HERI Address: [address] [place] [address] Room/Bed: [address], Zip: [place] [address] Admit Date: 01/08/17 Date of : [birth year] Height: 6 0 Weight: 192 87.5 NUTRITION MONITORING/FOLLOW-UP: Reason: PT SEEN FOR ENTERAL NUTRITION SUPPORT FOLLOW-UP DX: EPILEPTICUS Anthropometrics: 5'11", WT: 192# ( 87 KG), BMI: 26.8 -ADMIT WEIGHT: 170# Labs: GLU: 121, NA+:134, ALB: 2.9, ALT: 9 Meds: DILANTIN, NACL, KCL, KEPPRA, THERAPEUTIC FORMULA, PHENERGAN, THIAMINE, MIRALAX, SENOKOT I&O's: 2505/847, 2 BMs NOTED Skin: PREVIOUSLY NOTED Estimated Nutrition Needs: [phone] KCAL ~75 G PRO Assessment: CHART REVIEWED AND EVENTS NOTED. PT SEEN FOR ENTERAL NUTRITION SUPPORT FOLLOW-UP. PT EXTUBATED 01/15, CURRENTLY ON NASAL CANNULA. PT FAILED PRACTICAL NURSING INSTRUCTOR EVAL THIS AM. ENTERAL NUTRITION SUPPORT OF JEVITY 1.5 CURRENTLY ON HOLD 2' PT COUGHING, SECRETIONS OBSERVED (PREVENT ASPIRATION). PT NOT APPROPRIATE FOR DIET INTERVIEW AT THIS TIME. RD TO CONTINUE TO FOLLOW. Dx: INADEQUATE ENERGY INTAKE R/T NUTRITION TURNED OFF AT THIS TIME AEB ENTERAL NUTRITION ON HOLD 2' MEDICATION DOSING.-ACTIVE NEW Dx: INADEQUATE ENTERAL NUTRITION INFUSION R/T PT COUGHING, SECRETIONS AEB CURRENT ENTERAL NUTRITION ON HOLD. Intervention: 1. ENTERAL NUTRITION ON HOLD Monitoring, Evaluation and Goals: 1. TOLERANCE OF ORAL DIET ADVANCEMENT VS. NUTRITION SUPPORT TO MEET ESTIMATED NEEDS-NOT MET 2. LYTES WNL-IN PROGRESS 3. PROMOTE REGULAR BMs-IN PROGRESS 4. ENTERAL NUTRITION; PROVIDE >80% ESTIMATED GOAL VOLUME X 24 HOURS-NOT MET Recommendations: [facility] Therapy DATE: 01/17/17 Patient: BHAVNA MARTIN Physician: HERI Address: [address] [place] [address] Room/Bed: [address], Zip: [place] [address] Admit Date: 01/08/17 Date of : [birth year] Height: 6 0 Weight: 192 87.5 1. ONCE MEDICALLY FEASIBLE, RE-INITIATE ENTERAL NUTRITION SUPPORT OF JEVITY 1.5 @ GOAL RATE OF 65 ML/HR X 18 HOURS + SUGAR-FREE PROSTAT ONCE DAILY (PT RECEIVING DILANTIN-HOLD ONE HOUR BEFORE AND ONE HOUR AFTER ADMINISTRATION X 3) -PROVIDES 1855 KCAL, 90 G PRO, 889 ML FREE H20 ADD FREE H20 FLUSHES OF 170 ML q 4 HOURS TO MEET PT'S CURRENT ESTIMATED FLUID NEEDS OR MANAGE PER MD 2. ONCE DILANTIN D/C'D, RECOMMEND JEVITY 1.5 @ GOAL RATE OF 55 ML/HR -PROVIDES 1980 KCAL, 84 G PRO, 1003 ML FREE H20 ADD FREE H20 FLUSHES OF 250 ML QID TO MEET PT'S CURRENT ESTIMATED FLUID NEEDS OR MANAGE PER MD 3. ONCE FEASIBLE, ADVANCE DIET PER PRACTICAL NURSING INSTRUCTOR + DIET RD WILL F/U PER PROTOCOL PT IS MODERATELY COMPROMISED Respectfully, CHRISTOPHER COLLINS MS, RD, LD [facility] Nutrition[facility] Services [facility] cc: client file
--- NOTE | ~2017-01-08 | CR72 ---
[facility] A Service of [facility] & [facility] RADIOLOGY TEXT RESULTS PATIENT: BHAVNA MARTIN LOCATION: [address] : [birth year] UNIT #: [id number] AGE: [address]: Ava Huerta MD SEX: M ORDER DR: [id number] [facility] [address] [facility] [place] [facility]. [place], [place] [address] [id number] I MR#: [id number] Acc #: [id number] NAME: BHAVNA MARTIN : 1945 SEX: M STUDY DATE/TIME: 01/11/2017 6:07 UNIT: [facility] ROOM: [facility] STUDY DESCRIPTION: CR Chest Single View Portable Attending Physician: Ava Huerta M.D. Ordering Physician: Suzan Ayon M.D. Primary Care Physician: Milan Raymond M.D. MEDICAL IMAGING REPORT This report is preliminary unless electronic signature is present EXAM Portable chest INDICATION Cough. Shortness of breath for 3 days. Followup endotracheal tube. FINDINGS Today's portable view of the chest is compared with yesterday's study. There are low lung volumes. There is an external object superimposed on the left base which makes it difficult to evaluate. The endotracheal tube and Dobbhoff tube are in good position. There has been no apparent change. Dictated by... Rajendra Ng M.D. THIS IS AN ELECTRONICALLY VERIFIED REPORT Rajendra Ng M.D. at 01/13/2017 6:15 AM GIUSEPPE/davy TD: 01/12/2017 08:59 JOB #: [id number] MEDICAL IMAGING REPORT Page 1 of 1 COPY
--- NOTE | ~2017-01-08 | CT71 ---
[facility] A Service of [facility] / [facility] RADIOLOGY TEXT RESULTS PATIENT: BHAVNA MARTIN LOCATION: CICCU3 CICCU3-20 : [birth year] UNIT #: [id number] AGE: [address]: Ava Huerta MD SEX: M ORDER DR: [id number] [facility] [address] [facility]. [place], [place] [address] [id number] I MR#: [id number] Acc #: [id number] NAME: BHAVNA MARTIN : 1945 SEX: M STUDY DATE/TIME: 01/08/2017 10:21 UNIT: [facility] ROOM: [id number] STUDY DESCRIPTION: CT Head Wo Contrast Attending Physician: Dre Ayon M.D. Ordering Physician: Temitope Perez M.D. Primary Care Physician: Milan Raymond M.D. MEDICAL IMAGING REPORT This report is preliminary unless electronic signature is present EXAM Head CT no contrast, 01/08/2017 PROCEDURE Axial unenhanced head CT. This CT exam was performed with one or more of the following radiation dose reduction techniques: automatic exposure control, adjustment of mA and/or kV according to patient size, and iterative reconstruction. COMPARISON Prior head CT dated 11/06/2016 CLINICAL HISTORY 3 seizures today. FINDINGS There is no intracranial hemorrhage. There is no mass or hydrocephalus or extraaxial fluid collection. There is advanced volume loss and moderate nonspecific white matter change but no acute abnormality is seen and there has been no interval change since 11/06/2016. The extracranial soft tissues are normal. There are chronic changes in both maxillary sinuses but the skull base and calvaria are otherwise unremarkable. IMPRESSION Moderately advanced chronic changes but no acute abnormality, no interval change since 11/06/2016. Dictated by... Marquis Kohler M.D. THIS IS AN ELECTRONICALLY VERIFIED REPORT Marquis Kohler M.D. at 01/09/2017 5:00 PM [facility] A Service of [facility] / [facility] RADIOLOGY TEXT RESULTS PATIENT: BHAVNA MARTIN LOCATION: CICCU3 CICCU3-20 : [birth year] UNIT #: [id number] AGE: [address]: Ava Huerta MD SEX: M ORDER DR: Kamila TD: 01/08/2017 12:48 JOB #: [id number] MEDICAL IMAGING REPORT Page 1 of 1 COPY
--- NOTE | ~2017-01-08 | EKG ---
PATIENT: BHAVNA MARTIN UNIT #: [id number] Ventricular Rate: 144 BPM Atrial Rate: 144 BPM P-R Interval: 126 ms QRS Duration: 68 ms Q-T Interval: 282 ms QTC Calculation(Bezet): 436 ms P [place]: -17 degrees Calculated R [place]: 13 degrees Calculated T [place]: 22 degrees Diagnosis Line: Sinus tachycardia Diagnosis Line: Septal infarct (cited on or before 08-JAN-2017) Diagnosis Line: Abnormal ECG Diagnosis Line: When compared with ECG of 06-NOV-2016 14:58, Diagnosis Line: No significant change was found Diagnosis Line: Confirmed by AMINATA STARK MD ([id number]) on 01/09/2017 Diagnosis Line: 10:19:14 PM INTERPRETING MD: LINCOLN LAMAS
--- NOTE | ~2017-01-08 | CR72 ---
[facility] A Service of [facility] & [facility] RADIOLOGY TEXT RESULTS PATIENT: BHAVNA MARTIN LOCATION: [address] : [birth year] UNIT #: [id number] AGE: [address]: Ava Huerta MD SEX: M ORDER DR: [id number] [facility] [address] [facility]. [place], [place] [address] [id number] I MR#: [id number] Acc #: [id number] NAME: BHAVNA MARTIN : 1945 SEX: M STUDY DATE/TIME: 01/15/2017 4:37 UNIT: [facility] ROOM: [facility] STUDY DESCRIPTION: CR Chest Single View Portable Attending Physician: Ava Huerta M.D. Ordering Physician: Suzan Ayon M.D. Primary Care Physician: Milan Raymond M.D. MEDICAL IMAGING REPORT This report is preliminary unless electronic signature is present EXAM Portable chest HISTORY Respiratory failure for 1 week. Intubated. FINDINGS Compared to the 01/13/2017, there is slightly increased density in the left base likely consolidation or atelectasis in the inferior left lower lobe. Persistent small left pleural effusion. Remainder of the lungs are clear. ETT tip approximately 3 cm above the jacquelyn. Right subclavian central line tip is in the right atrium approximately 2 cm beyond the junction of the SVC and right atrium. Dictated by... Damion Huffman M.D. THIS IS AN ELECTRONICALLY VERIFIED REPORT Damion Huffman M.D. at 01/15/2017 10:07 PM DFL/davy TD: 01/15/2017 08:08 JOB #: [id number] MEDICAL IMAGING REPORT Page 1 of 1 COPY
--- NOTE | ~2017-01-08 | CR71 ---
[facility] A Service of [facility] & [facility] RADIOLOGY TEXT RESULTS PATIENT: BHAVNA MARTIN LOCATION: [address] : [birth year] UNIT #: [id number] AGE: [address]: Ava Huerta MD SEX: M ORDER DR: [id number] [facility] [address] [facility]. [place], [place] [address] [id number] I MR#: [id number] Acc #: [id number] NAME: BHAVNA MARTIN : 1945 SEX: M STUDY DATE/TIME: 01/12/2017 3:53 UNIT: [facility] ROOM: [facility] STUDY DESCRIPTION: CR Chest Single View Attending Physician: Ava Huerta M.D. Ordering Physician: Barbara Stoner M.D. Primary Care Physician: Milan Raymond M.D. MEDICAL IMAGING REPORT This report is preliminary unless electronic signature is present EXAM Portable chest HISTORY Respiratory failure for 4 days. FINDINGS Compared to yesterday there has been no significant change. Persistent infiltrate or atelectasis in the left base and probable minimal left pleural effusion. Right subclavian central line tip is at the level of the inferior right atrium. ETT tip is approximately 3 cm above the jacquelyn. Feeding tube extends into the stomach. No new infiltrates. Dictated by... Damion Huffman M.D. THIS IS AN ELECTRONICALLY VERIFIED REPORT Damion Huffman M.D. at 01/13/2017 4:51 AM JENNIFFER/carlton TD: 01/13/2017 00:20 JOB #: [id number] MEDICAL IMAGING REPORT Page 1 of 1 COPY
--- NOTE | ~2017-01-08 | A ---
[facility] Nutrition Therapy DATE: 01/09/17 Patient: BHAVNA MARTIN Physician: HERI Address: [address] [place] [address] Room/Bed: [address], Zip: [place] [address] Admit Date: 01/08/17 Date of : [birth year] Height: 6 0 Weight: 165 75 NUTRITIONAL ASSESSMENT: REASON: Enteral nutrition recommendations Admitting dx: 71 y/o male admitted s/p epilepticus PMH: ETOH abuse, seizure d/o, TIA, BPH, PVD, pancreatitis, A-fib, peripheral neuropathy Anthropometrics: Ht: 71", Wt: 75 kg, BMI: 23.1 (normal) 2017 weight range: 157-182 lbs Labs: K+ 2.7, glucose 120, Mg 1.4 Meds: MVI with minerals, thiamine, folic acid, loperamide, phenergan prn, k/mg drips, mgso4, kcl, nacl, mag-al suspension, IV abx, D5NS IVF @ 150 ml/hr I/O & Bowel function: Last BM unknown Skin Integrity: Reviewed; nothing significant Edema: Trace BLE/BUE, generalized trunk Estimated Nutrition Needs: 2725-7602 kcals/day (25-30 kcals/kg) ~75 g protein/day (1.0 g/kg) Fluids consistent with kcal needs or per MD Assessment: Chart reviewed, events noted. See admitting dx and PMH as stated above. Patient is on room air after being extubated yesterday, s/p multiple seizures. He is confused, agitated and has mittens on. He has a hx at [facility] in 2009 and hx of daily ETOH abuse. Scored 0 points on the malnutrition risk screen. He is currently NPO and is inappropriate for RD interview at this time, no family present. Per nursing, he may need a feeding tube placed. See RD recs below, will follow hospital course. Dx: Inadequate energy intake r/t nutrition not yet initiated AEB NPO x 1 day, possible need for enteral nutrition. Intervention: EN vs PO diet, k/mg replacement Monitoring, Evaluation and Goals: 1. Tolerance of oral diet advancement vs nutrition support to meet estimated needs. 2. Lytes WNL. [facility] Nutrition Therapy DATE: 01/09/17 Patient: BHAVNA MARTIN Physician: HERI Address: [address] [place] [address] Room/Bed: [address], Zip: [place] [address] Admit Date: 01/08/17 Date of : [birth year] Height: 6 0 Weight: 165 75 3. Promote regular BM's. Monitor: per protocol, criteria to determine whether above goals met Recommendations: 1. PO diet per BOTTLE MACHINE OPERATOR only for safety with no other dietary restrictions. 2. If the patient is not appropriate for BOTTLE MACHINE OPERATOR eval or fails eval place DHT and start enteral nutrition with Jevity 1.5 @ 20 ml/hr and increase by 10 ml q 6 hours until goal rate of 55 ml/hr is reached, to provide 1320 ml, 1980 kcals, 84 g protein and 1003 ml water. Once at goal rate add 250 ml free water flushes QID and hold liquid IVF, or per MD. 3. Continue replacing lytes prn. Consider checking Phos with next lab draw. RD will follow Moderate nutrition risk Respectfully, Ingrid Lepe, MERCEDEZ, LD Food and Nutritional Services [facility] cc: client file
--- NOTE | ~2017-01-08 | FU ---
[facility] Nutrition Therapy DATE: 01/13/17 Patient: BHAVNA MARTIN Physician: HERI Address: [address] [place] [address] Room/Bed: [address], Zip: [place] [address] Admit Date: 01/08/17 Date of : [birth year] Height: 6 0 Weight: 197 89.5 NUTRITION MONITORING/FOLLOW-UP: Reason: PT SEEN FOR FOLLOW-UP/ENTERAL NUTRITION SUPPORT DX: EPILEPTICUS Anthropometrics: 5'11", WT: 197# ( 90 KG), BMI: 27.5 -ADMIT WEIGHT: 165# Labs: ALB: 3.2 Meds: DILANTIN, NACL, KCL, KEPPRA, THERAPEUTIC FORMULA, FENTANYL, VERSED, PHENERGAN, THIAMINE, MIRALAX I&O's: 6712/3250 Skin: LLE/BUE TRACE EDEMA Estimated Nutrition Needs: 2988-4715 KCAL ~75 G PRO Assessment: CHART REVIEWED AND EVENTS NOTED. PT SEEN FOR ENTERAL NUTRITION SUPPORT FOLLOW-UP. PT CONTINUES TO BE INTUBATED AND SEDATED AT TIME OF VISIT. ENTERAL NUTRITION SUPPORT OF JEVITY 1.5 CURRENTLY OFF 2' DILANTIN DOSING (HOLDING ENTERAL NUTRITION SUPPORT ONE HOUR BEFORE AND ONE HOUR AFTER ADMINISTRATION). PER RN AND CHART, PT TOLERATING ENTERAL NUTRITION, NOTING NO ISSUES. NO FAMILY IN ROOM AT THIS TIME. RD TO CONTINUE TO FOLLOW. SEE RECOMMENDATIONS BELOW. Dx: INADEQUATE ENERGY INTAKE R/T NUTRITION NOT YET INITIATED AEB NPO X 1 DAY, POSSIBLE NEED FOR ENTERAL NUTRITION.-RESOLVED/ACTIVE NEW Dx: INADEQUATE ENERGY INTAKE R/T NUTRITION TURNED OFF AT TIME OF VISIT AEB ENTERAL NUTRITION ON HOLD 2' MEDICATION DOSING. Intervention: 1. ENTERAL NUTRITION OFF Monitoring, Evaluation and Goals: 1. TOLERANCE OF ORAL DIET ADVANCEMENT VS. NUTRITION SUPPORT TO MEET ESTIMATED NEEDS-NOT MET 2. LYTES WNL-IN PROGRESS 3. PROMOTE REGULAR BMs-IN PROGRESS NEW GOAL (IN ADDITION TO ABOVE) [facility] Nutrition Therapy DATE: 01/13/17 Patient: BHAVNA MARTIN Physician: HERI Address: [address] [place] [address] Room/Bed: [address], Zip: [place] [address] Admit Date: 01/08/17 Date of : [birth year] Height: 6 0 Weight: 197 89.5 1. ENTERAL NUTRITION; PROVIDE >80% TOTAL GOAL VOLUME X 24 HOURS MONITOR: -TF RE-INITIATION -TF RATE/GOALS -EXTUBATION -LABS Recommendations: 1. RECOMMEND TO RE-INITIATE ENTERAL NUTRITION OF JEVITY 1.5 @ GOAL RATE OF 65 ML/HR X 18 HOURS + SUGAR-FREE PROSTAT ONCE DAILY (PT RECEIVING DILANTIN TID-HOLD ONE HOUR BEFORE AND ONE HOUR AFTER ADMINISTRATION) -TOTAL PROVIDES 1855 KCAL, 90 G PRO, 889 ML FREE H20 ADD FREE H20 FLUSHES OF 170 ML q 4 HOURS TO MEET PT'S CURRENT ESTIMATED FLUID NEEDS OR MANAGE PER MD 2. ONCE DILANTINE D/C'D, RECOMMEND ENTERAL NUTRITION SUPPORT OF JEVITY 1.5 @ 55 ML/HR -PROVIDES 1980 KCAL, 84 G PRO, 1003 ML FREE H20 ADD FREE H20 FLUSHES OF 250 ML QID TO MEET PT'S CURRENT ESTIMATED FLUID NEEDS OR MANAGE PER MD 3. ONCE MEDICALLY FEASIBLE, ADVANCE DIET PER COMMERCIAL ILLUSTRATOR + DIET RD WILL F/U PER PROTOCOL PT IS MOD/SEVERELY COMPROMISED Respectfully, Erica Ackerman, RD, LD Food and Nutritional Services [facility] cc: client file
--- NOTE | ~2017-01-08 | CR72 ---
[facility] A Service of [facility] & [facility] RADIOLOGY TEXT RESULTS PATIENT: BHAVNA MARTIN LOCATION: [address] : [birth year] UNIT #: [id number] AGE: [address]: Ava Huerta MD SEX: M ORDER DR: [id number] [facility] [address] [facility]. [place], [place] [address] [id number] I MR#: [id number] Acc #: [id number] NAME: BHAVNA MARTIN : 1945 SEX: M STUDY DATE/TIME: 01/10/2017 5:42 UNIT: [facility] ROOM: [facility] STUDY DESCRIPTION: CR Chest Single View Portable Attending Physician: Ava Huerta M.D. Ordering Physician: Ava Huerta M.D. Primary Care Physician: Milan Raymond M.D. MEDICAL IMAGING REPORT This report is preliminary unless electronic signature is present EXAM Single view chest. INDICATION Respiratory failure. Shortness of air and cough for 2 days. TECHNIQUE Single portable AP view of the chest compared to 01/09/2017. FINDINGS The enteric tube has been advanced into the stomach. Remaining heart and mediastinal contours are unchanged. Left basilar atelectasis is similar to the prior study. No pneumothorax. IMPRESSION Left basilar atelectasis. Dictated by... Niraj Luciano M.D. THIS IS AN ELECTRONICALLY VERIFIED REPORT Niraj Luciano M.D. at 01/10/2017 2:52 PM LALA/justen TD: 01/10/2017 14:35 JOB #: [id number] MEDICAL IMAGING REPORT Page 1 of 1 COPY
--- NOTE | ~2017-01-08 | CR7 ---
[facility] A Service of [facility] & [facility] RADIOLOGY TEXT RESULTS PATIENT: BHAVNA MARTIN LOCATION: [address] : [birth year] UNIT #: [id number] AGE: [address]: Ava Huerta MD SEX: M ORDER DR: [id number] [facility] [address] [facility]. [place], [place] [address] [id number] I MR#: [id number] Acc #: [id number] NAME: BHAVNA MARTIN : 1945 SEX: M STUDY DATE/TIME: 01/09/2017 17:59 UNIT: [facility] ROOM: [facility] STUDY DESCRIPTION: CR Abdomen Single AP View Attending Physician: Ava Huerta M.D. Ordering Physician: Jose Avila M.D. Primary Care Physician: Milan Raymond M.D. MEDICAL IMAGING REPORT This report is preliminary unless electronic signature is present EXAM Portable abdomen 01/09/2017 HISTORY Respiratory failure, intubated, feeding difficulty, Dobbhoff tube placement. FINDINGS The tip of the Dobbhoff tube is coiled in the region of the gastric fundus. Dictated by... Tom Cho M.D. THIS IS AN ELECTRONICALLY VERIFIED REPORT Tom Cho M.D. at 01/10/2017 4:01 PM CHRISTINA/enrique TD: 01/10/2017 10:43 JOB #: [id number] MEDICAL IMAGING REPORT Page 1 of 1 COPY
--- NOTE | ~2017-01-08 | CR72 ---
[facility] A Service of [facility] & [facility] RADIOLOGY TEXT RESULTS PATIENT: BHAVAN MARTIN LOCATION: [facility]3 C[facility]3-20 : 43 UNIT #: [id number] AGE: [address]: DOV ABREU MD SEX: M ORDER DR: [id number] [facility] [address] [facility]. [place], [place] [address] [id number] MR#: [id number] Acc #: [id number] NAME: BHAVNA MARTIN : 1945 SEX: M STUDY DATE/TIME: 01/08/2017 10:03 UNIT: Y[facility] ROOM: STUDY DESCRIPTION: CR Chest Single View Portable Attending Physician: Temitope Perez M.D. Ordering Physician: Ed Doctor [id number] [facility] Primary Care Physician: Milan Raymond M.D. MEDICAL IMAGING REPORT This report is preliminary unless electronic signature is present EXAM Chest portable 01/08/2017 1003 hours HISTORY Shortness of air requiring endotracheal tube placement today. COMPARISON 11/06/2016. FINDINGS Portable upright chest demonstrates a new endotracheal tube with tip 2.4 cm above the jacquelyn. There is a right central venous catheter with tip in mid SVC. There is no pneumothorax. Heart size is normal. There is a tortuous aorta without change. Lung volumes are low with mild left greater than right basilar density which could represent pneumonia or atelectasis. No effusions are seen. IMPRESSION 1. New endotracheal tube tip is 2.4 cm above the jacquelyn. Right central venous catheter tip is in the mid SVC. There is no pneumothorax. 2. Heart size within normal limits with stable tortuous aorta as compared to 11/06/2016. 3. Lung volumes are lower than on the prior study with patchy left greater than right medial basilar density in the lungs. This could represent atelectasis or pneumonia. There is no pleural effusion. Dictated by... Chaya Lovett M.D. THIS IS AN ELECTRONICALLY VERIFIED REPORT Chaya Lovett M.D. at 01/08/2017 2:31 PM ROSITA/enrique [facility] A Service of [facility] & [facility] RADIOLOGY TEXT RESULTS PATIENT: BHAVNA MARTIN LOCATION: CIC3 CICCU3-20 : 43 UNIT #: [id number] AGE: [address]: DOV ABREU MD SEX: M ORDER DR: TD: 01/08/2017 12:36 JOB #: [id number] MEDICAL IMAGING REPORT Page 1 of 1 COPY
--- NOTE | ~2017-01-08 | CR72 ---
[facility] A Service of [facility] & [facility] RADIOLOGY TEXT RESULTS PATIENT: BHAVNA MARTIN LOCATION: [facility]-26 : 44 UNIT #: [id number] AGE: [address]: Ava Huerta MD SEX: M ORDER DR: [id number] [facility] [address] [facility]. [place], [place] [address] [id number] I MR#: [id number] Acc #: [id number] NAME: BHAVNA MARTIN : 1945 SEX: M STUDY DATE/TIME: 01/09/2017 17:55 UNIT: [facility] ROOM: [facility] STUDY DESCRIPTION: CR Chest Single View Portable Attending Physician: Ava Huerta M.D. Ordering Physician: Ava Huerta M.D. Primary Care Physician: Milan Raymond M.D. MEDICAL IMAGING REPORT This report is preliminary unless electronic signature is present EXAM Frontal single view of the chest dated 01/09/2017. COMPARISON Single view chest dated 01/08/2017. HISTORY Endotracheal tube placement. FINDINGS Single frontal view of the chest was obtained. Tip of endotracheal tube is about 3.9 cm from the jacquelyn. Right subclavian approach catheter tip is in the cavoatrial junction extending towards the right atrium. There is another tube noted extending along the midline. If it is a nasogastric tube, the tip is in the region of the mid T-spine. It has to be further advanced. It is unclear if this is intrinsic or extrinsic to the patient. Correlate clinically. There is opacity noted in the left lung base. Part of it could be related to overlying leads and bandages. Underlying mild alveolar infiltrate cannot be excluded. No obvious pleural effusion or pneumothorax. Heart is of normal size. Dictated by... Elroy Sweet M.D. THIS IS AN ELECTRONICALLY VERIFIED REPORT Elroy Sweet M.D. at 01/15/2017 9:16 AM CPR/pc TD: 01/10/2017 10:26 JOB #: [id number] MEDICAL IMAGING REPORT [facility]. [facility] A Service of [facility] & [facility] RADIOLOGY TEXT RESULTS PATIENT: BHAVNA MARTIN LOCATION: CIC[facility]2 CICCU2-08 : 43 UNIT #: [id number] AGE: [address]: Ava Huerta MD SEX: M ORDER DR: Page 1 of 1 COPY
--- NOTE | ~2017-01-08 | HP ---
Unit #: [id number] #: [id number] Patient: BHAVNA MARTIN [id number] [address] [address] [id number] I MR#: [id number] NAME: BHAVNA MARTIN ROOM: [facility]IC[facility]3 Age: 71 Sex: M Admission Date: 01/08/2017 : 1945 Attending Physician: Dov Ayon M.D. Primary Care Physician: Milan Raymond M.D. HISTORY AND PHYSICAL CHIEF COMPLAINT Seizures. HISTORY OF PRESENT ILLNESS The patient is a 71-year-old male with a past medical history of alcohol abuse, seizure disorder, TIA, peripheral neuropathy, BPH, peripheral vascular disease, pancreatitis, atrial fibrillation and brought to the emergency room with seizures. The patient is unable to give history as the patient is status post intubation and sedation. The patient had multiple episodes of seizures early today, around 4 to 5. The patient is unable to give history. The patient's friend who called EMS could give no information. The patient has had recurrent admissions in the past for similar presentation with noncompliance with medications. No further history is available. PAST MEDICAL HISTORY 1. History of DTs and alcohol withdrawal. 2. Seizure disorder. 3. TIA. 4. Peripheral neuropathy. 5. BPH. 6. Peripheral vascular disease. 7. Pancreatitis. 8. History of atrial fibrillation, not on chronic anticoagulation. PAST SURGICAL HISTORY 1. Right ankle surgery. 2. Right shoulder surgery. 3. Circumcision 25 years ago. SOCIAL HISTORY The patient is currently living with a friend. He is a daily drinker. Denies any illicit drug abuse. No tobacco abuse obtained from the records. FAMILY HISTORY Notable for hypertension. ALLERGIES Penicillin, Bactrim. HOME MEDICATIONS 1. Flomax. 2. Topamax. 3. Norvasc. Unit #: [id number] #: [id number] Patient: BHAVNA MARTIN 4. Keppra. 5. Dilantin. 6. Baclofen. 7. Coreg. 8. Folic acid. 9. Thiamine. 10. Gabapentin. 11. Lisinopril. REVIEW OF SYSTEMS Unable to obtain as the patient is status post intubation. PHYSICAL EXAMINATION GENERAL: The patient is status post intubation with sedation. Started on Vimpat and Keppra. No more seizures. VITALS: Temperature 98.2, pulse 140, respiratory rate 16, blood pressure 119/80, saturating 100% on the ventilator. HEENT: Head atraumatic, normocephalic. Pupils equal, round and reactive to light and accommodation. Extraocular movements are intact. NECK: Status post orotracheal intubation. LUNGS: Coarse breath sounds. Decreased air entry. HEART: Regular rate and rhythm. Tachycardic. ABDOMEN: Soft. Bowel sounds present. EXTREMITIES: No cyanosis or clubbing. NEUROLOGIC: Status post intubation and sedation. PSYCH: Unable to assess as the patient is status post intubation. DIAGNOSTIC STUDIES IMAGING: Chest x-ray shows new endotracheal tube tip is 2.4 cm above the jacquelyn. Right central venous catheter tip is in the mid SVC. There is no pneumothorax. Lung volumes are lower than on the prior study with patchy left greater than right middle basilar density in the lungs. This could represent atelectasis or pneumonia. The is no pleural effusion. CT of the head shows moderately advanced chronic changes, but no acute abnormality. No interval change since 11/06/2016. LABORATORY: ABG shows pH 7.21, pCO2 36.3, pO2 477, bicarb 14.6, oxygen saturation 99%. White blood cell count 7.4, hemoglobin 11.8, hematocrit 34.6, platelets 136, troponin less than 0.05, INR 1.1, lactic acid 11.1, Dilantin less than 2.5, BNP 37, sodium 146, potassium 4, chloride 111, bicarb 15, glucose 177, BUN 10, creatinine 1.3, calcium 8.2, CK 82, magnesium 1.9, alcohol less than 5. Urine drug screen is positive for benzodiazepines. Urinalysis shows 1+ protein and 1+ blood. Troponin less than 0.05 and vitamin B12 is 272. ASSESSMENT/PLAN 1. Status epilepticus. 2. Acute respiratory failure, status post intubation. 3. Sepsis. PLAN Admit the patient to the ICU. Continue with vent management. Will have critical care consult with Dr. Stoner. Continue with antiepileptics per neurology. Continue with sepsis protocol and empiric IV antibiotics with Zosyn. The patient's prognosis is guarded. Further recommendations will follow. Unit #: [id number] #: [id number] Patient: BHAVNA MARTIN Dictated by Bret Juarez/tarsha TD: 01/08/2017 14:21 JOB #: [id number] HISTORY AND PHYSICAL Page 1 of 1 X DOV AYON MD HISTORY AND PHYSICAL
--- NOTE | ~2017-01-08 | FU ---
[facility] Nutrition Therapy DATE: 01/22/17 Patient: BHAVNA MARTIN Physician: HERI Address: [address] [place] [address] Room/Bed: [address] [place] [address], Zip: [place] [address] Admit Date: 01/08/17 Date of : 43 Height: 6 0 Weight: 172 78.2 NUTRITION MONITORING/FOLLOW-UP: Reason: PT SEEN FOR FOLLOW-UP DX: EPILEPTICUS Anthropometrics: 5'11", WT: 172# ( 78 KG), BMI: 24.0 -ADMIT WEIGHT: 175# Labs: NA+:129, AST: 56, ALT: 70, GFR: 57.8 Meds: NACL, THIAMINE, FOLIC ACID, MIRALAX, SENOKOT, KCL, PHENERGAN, PROTONIX I&O's: 460/903, 2 BMs NOTED Skin: PREVIOUSLY NOTED Assessment: CHART REVIEWED AND EVENTS NOTED. PT SEEN FOR FOLLOW-UP. PT AWAKE AT TIME OF VISIT REPORTING GOOD PO INTAKE AND APPETITE, NOTING NO C/O N/V/D. PT REPORTS CONSUMING ~50% OF BREAKFAST THIS AM. PT ADDS HE DOES NOT LIKE THE FOOD HERE AT [facility]. THIS RD ENCOURAGED PT TO ORDER FAVORITE FOODS + SUPPLEMENT INTAKE, PT AGREED OT ENSURE SHAKES BID, RD TO ORDER. PT REPORTED NO DIET QUESTIONS AT THIS TIME. PER CHART, PLANS IN PLACE FOR PT TO D/C TO REHAB ON 01/23, PRIMARY SPECIAL EDUCATION TEACHER PROGNOSIS POOR. Dx: INADEQUATE ENERGY INTAKE R/T NUTRITION TURNED OFF AT THIS TIME AEB ENTERAL NUTRITION ON HOLD 2' MEDICATION DOSING.-RESOLVED 2. INADEQUATE ENTERAL NUTRITION INFUSION R/T PT COUGHING, SECRETIONS NOTED AEB CURRENT ENTERAL NUTRITION SUPPORT ON HOLD.-RESOLVED 3. ADEQUATE NUTRIENT INTAKE R/T GOOD APPETITE AEB PT REPORT ABOVE. Intervention: 1. REGULAR DIET 2. ENSURE SHAKES BID Monitoring, Evaluation and Goals: 1. TOLERANCE OF ORAL DIET ADVANCEMENT VS. NUTRITION SUPPORT TO MEET ESTIMATED NEEDS-MET/ACTIVE 2. LYTES WNL-MET/ACTIVE 3. PROMOTE REGULAR BMs-MET/ACTIVE 4. ENTERAL NUTRITION; PROVIDE >80% ESTIMATED GOAL VOLUME X 24 HOURS-RESOLVED MONITOR: PER PROTOCOL, CRITERIA TO DETERMINE IF GOALS ARE MET [facility] Nutrition Therapy DATE: 01/22/17 Patient: BHAVNA MARTIN Physician: HERI Address: [address] [place] [address] Room/Bed: [address] [place] [address], Zip: [place] [address] Admit Date: 01/08/17 Date of : 43 Height: 6 0 Weight: 172 78.2 Recommendations: 1. CONTINUE CURRENT DIET ORDER ABOVE 2. PLEASE ORDER VANILLA ENSURE SHAKES BID W/MEALS FOR SUPPLEMENTAL NUTRITION 3. ENCOURAGE PO INTAKE. CONTINUE THIAMINE AND FOLIC ACID DAILY 2' ETOH ABUSE RD WILL F/U PER PROTOCOL PT IS MILDLY COMPROMISED Respectfully, CHRISTOPHER COLLINS MS, RD, LD [facility] cc: client file
[2017-01-08 11:17] LABS: ARTERIAL BLOOD GAS CARBOXY HB 0.2 %sat (0.0-9.0); ARTERIAL BLOOD GAS HCO3 14.6 mmol/L; ARTERIAL BLOOD GAS MET HB 0.8 %sat (0.0-2.0); ARTERIAL BLOOD GAS PCO2 36.3 mmHg (35.0-45.0); ARTERIAL BLOOD GAS pH 7.212 (7.350-7.450)
[2017-01-08 11:18] LABS: ARTERIAL BLOOD GAS ART SITE RIGHT RADIAL; ARTERIAL BLOOD GAS DELIVERY VENT; ARTERIAL BLOOD GAS VENT MODE AC; ARTERIAL DRAW? YES
[2017-01-08 11:20] LABS: BASOPHIL% 0.3 % (0-2.5); EOSINOPHIL% 0.5 % (0.0-7.0); HEMATOCRIT 34.6 % (38.0-50.0); HEMOGLOBIN 11.8 gm/dL (13.0-16.0); LYMPHOCYTE# 0.9 X10e3 (1.0-3.5); LYMPHOCYTE% 11.9 % (17.0-45.0); MEAN CELL VOLUME 96.5 FL (83-96); MEAN CORPUSCULAR HEMOGLOBIN 32.8 PG (28-34); MEAN PLATELET VOLUME 8.6 FL (6.5-11.5); MONOCYTE# 0.6 X10e3 (0-1.0); MONOCYTE% 7.9 % (3.0-12.0); NEUTROPHIL# 5.9 X10e3 (1.5-7.1); NEUTROPHIL% 79.4 % (40-75); PLATELET COUNT 136 X10e3 (140-420); RED BLOOD COUNT 3.59 X10e (3.90-5.60); RED CELL DISTRIBUTION WIDTH 14.2 % (11.0-15.5); WHITE BLOOD COUNT 7.4 X10e3 (4.0-10.5)
[2017-01-08 11:21] LABS: DIFF IND NO
[2017-01-08 11:33] LABS: POC - CKMB <1.0 ng/mL (0.0-7.9); POC - TROPONIN <0.05 ng/mL (<=0.05)
[2017-01-08 11:33] LABS: INR 1.1; PARTIAL THROMBOPLASTIN TIME 23.1 SECONDS (23.5-31.3); PROTHROMBIN TIME (PATIENT) 11.9 SECONDS (10.0-11.7)
[2017-01-08 11:58] LABS: ALBUMIN SERUM 3.8 g/dL (3.5-5.0); ALKALINE PHOSPHATASE 74 U/L (32-92); ALT (SGPT) 12 U/L (10-40); AST (SGOT) 30 U/L (10-42); BILIRUBIN, DIRECT 0.1 mg/dL (0.0-0.2); BILIRUBIN,INDIRECT 0.2 mg/dL (0.0-0.9); BILIRUBIN,TOTAL 0.3 mg/dL (0.2-2.0); BLOOD UREA NITROGEN 10 mg/dL (9-23); BUN/CREATININE RATIO 7.69; CALCIUM SERUM 8.2 mg/dL (8.4-10.2); CARBON DIOXIDE 15 mmol/L (22-31); CHLORIDE 111 mmol/L (100-111); CPK (CREATINE PHOSPHOKINASE) 82 IU/L (36-174); CREATININE SERUM 1.3 mg/dL (0.6-1.4); GLOM FILT RATE Estimated 63.2 mL/min (>60); GLUCOSE FASTING 177 mg/dL (70-110); MAGNESIUM 1.9 mg/dL (1.6-3.0); PROTEIN TOTAL SERUM 6.6 g/dL (6.0-8.3); SODIUM 146 mmol/L (135-145)
[2017-01-08 11:59] LABS: ALCOHOL BLOOD <5 mg/dL (0)
[2017-01-08 12:02] LABS: URINE SOURCE CATH
[2017-01-08 12:06] LABS: URINE APPEARANCE CLEAR; URINE BILIRUBIN NEG (NEG); URINE BLOOD 1+ (NEG); URINE COLOR YELLOW; URINE GLUCOSE NEG (NEG); URINE KETONE NEG (NEG); URINE LEUKOCYTE ESTERASE NEG (NEG); URINE NITRATE NEG (NEG); URINE PROTEIN 1+ (NEG); URINE SPECIFIC GRAVITY 1.014 (1.003-1.035); URINE UROBILINOGEN 0.2 MG/DL (NEG)
[2017-01-08 12:08] LABS: URBCS1 AUWI 0-2 /[HPF] (0-2); URINE BACTERIA AUWI NEG (NEGATIVE); URINE SQUAMOUS EPITHELIAL CELL OCC /[HPF]; UWBCS1 AUWI 0-2 (0-5)
[2017-01-08 12:17] LABS: AMPHETAMINE NEG (NEG); BARBITURATES NEG (NEG); BENZODIAZEPINES POS (NEG); COCAINE NEG (NEG); MARIJUANA NEG (NEG); OPIATES NEG (NEG); TRICYCLIC ANTIDEPRESSANTS NEG (NEG); U METHADONE NEG (NEG)
[2017-01-08 12:28] LABS: CULTURE INDICATED? NO
[2017-01-08 13:13] LABS: POC - TROPONIN <0.05 ng/mL (<=0.05)
[2017-01-08 15:28] LABS: ARTERIAL BLD GAS O2 SATURATION 98.4 % (90.0-100.0); ARTERIAL BLOOD GAS CARBOXY HB 0.5 %sat (0.0-9.0); ARTERIAL BLOOD GAS MET HB 0.6 %sat (0.0-2.0); ARTERIAL BLOOD GAS PCO2 37.1 mmHg (35.0-45.0)
[2017-01-08 15:29] LABS: ARTERIAL BLOOD GAS ALLEN TEST NORMAL; ARTERIAL BLOOD GAS ART SITE RIGHT RADIAL; ARTERIAL BLOOD GAS DELIVERY VENT; ARTERIAL BLOOD GAS VENT MODE CPAP; ARTERIAL DRAW? YES
[2017-01-08 15:39] LABS: BASOPHIL% 0.2 % (0-2.5); EOSINOPHIL% 0.1 % (0.0-7.0); HEMATOCRIT 33.4 % (38.0-50.0); HEMOGLOBIN 11.3 gm/dL (13.0-16.0); LYMPHOCYTE% 14.2 % (17.0-45.0); MEAN CELL VOLUME 95.1 FL (83-96); MEAN CORPUSCULAR HEMOGLOBIN 32.2 PG (28-34); MEAN CORPUSCULAR HGB CONC 33.8 g/dL (30-36); MEAN PLATELET VOLUME 8.8 FL (6.5-11.5); MONOCYTE# 0.7 X10e3 (0-1.0); MONOCYTE% 9.4 % (3.0-12.0); NEUTROPHIL# 5.5 X10e3 (1.5-7.1); NEUTROPHIL% 76.1 % (40-75); PLATELET COUNT 132 X10e3 (140-420); RED BLOOD COUNT 3.51 X10e (3.90-5.60); RED CELL DISTRIBUTION WIDTH 13.9 % (11.0-15.5); WHITE BLOOD COUNT 7.3 X10e3 (4.0-10.5)
[2017-01-08 15:42] LABS: DIFF IND NO
[2017-01-08 18:53] LABS: ALBUMIN SERUM 3.7 g/dL (3.5-5.0); BILIRUBIN,TOTAL 0.5 mg/dL (0.2-2.0); BUN/CREATININE RATIO 8.88; CALCIUM SERUM 7.9 mg/dL (8.4-10.2); CREATININE SERUM 0.9 mg/dL (0.6-1.4); GLOM FILT RATE Estimated 98.5 mL/min (>60); POTASSIUM 3.4 mmol/L (3.5-5.1); PROTEIN TOTAL SERUM 6.4 g/dL (6.0-8.3)
[2017-01-08 19:03] LABS: THYROID STIMULATING HORMONE 0.78 uIU/ml (0.34-5.60)
[2017-01-08 19:10] LABS: FREE THYROXIN (T4) 0.67 ng/dL (0.58-1.64)
[2017-01-09 05:03] LABS: BASOPHIL% 0.5 % (0-2.5); EOSINOPHIL% 0.6 % (0.0-7.0); HEMATOCRIT 33.7 % (38.0-50.0); HEMOGLOBIN 11.5 gm/dL (13.0-16.0); LYMPHOCYTE# 1.3 X10e3 (1.0-3.5); LYMPHOCYTE% 20.2 % (17.0-45.0); MEAN CELL VOLUME 94.1 FL (83-96); MEAN CORPUSCULAR HEMOGLOBIN 32.1 PG (28-34); MEAN CORPUSCULAR HGB CONC 34.1 g/dL (30-36); MEAN PLATELET VOLUME 8.7 FL (6.5-11.5); MONOCYTE# 0.9 X10e3 (0-1.0); MONOCYTE% 14.4 % (3.0-12.0); NEUTROPHIL# 4.1 X10e3 (1.5-7.1); NEUTROPHIL% 64.3 % (40-75); PLATELET COUNT 129 X10e3 (140-420); RED BLOOD COUNT 3.58 X10e (3.90-5.60); RED CELL DISTRIBUTION WIDTH 14.1 % (11.0-15.5); WHITE BLOOD COUNT 6.4 X10e3 (4.0-10.5)
[2017-01-09 05:23] LABS: DIFF IND NO
[2017-01-09 05:50] LABS: CALCIUM SERUM 8.2 mg/dL (8.4-10.2); GLOM FILT RATE Estimated 86.8 mL/min (>60)
[2017-01-09 05:53] LABS: POTASSIUM 2.7 mmol/L (3.5-5.1)
[2017-01-09 20:15] LABS: ARTERIAL BLD GAS O2 SATURATION 97.8 % (90.0-100.0); ARTERIAL BLOOD GAS CARBOXY HB 1.1 %sat (0.0-9.0); ARTERIAL BLOOD GAS HCO3 24.7 mmol/L; ARTERIAL BLOOD GAS MET HB 0.4 %sat (0.0-2.0); ARTERIAL BLOOD GAS PCO2 35.8 mmHg (35.0-45.0); ARTERIAL BLOOD GAS pH 7.448 (7.350-7.450)
[2017-01-09 20:16] LABS: ARTERIAL BLOOD GAS ART SITE RIGHT BRACHIAL; ARTERIAL BLOOD GAS DELIVERY VENT; ARTERIAL BLOOD GAS VENT MODE AC; ARTERIAL DRAW? YES
[2017-01-10 04:16] LABS: ARTERIAL BLOOD GAS PCO2 33.9 mmHg (35.0-45.0); ARTERIAL BLOOD GAS pH 7.459 (7.350-7.450)
[2017-01-10 04:17] LABS: ARTERIAL BLOOD GAS ART SITE RIGHT BRACHIAL; ARTERIAL BLOOD GAS CARBOXY HB 0.6 %sat (0.0-9.0); ARTERIAL BLOOD GAS DELIVERY VENT; ARTERIAL BLOOD GAS VENT MODE AC; ARTERIAL DRAW? YES
[2017-01-10 05:06] LABS: BASOPHIL% 0.3 % (0-2.5); EOSINOPHIL# 0.2 X10e3 (0-0.7); EOSINOPHIL% 3.8 % (0.0-7.0); HEMATOCRIT 31.1 % (38.0-50.0); HEMOGLOBIN 10.8 gm/dL (13.0-16.0); LYMPHOCYTE# 1.7 X10e3 (1.0-3.5); LYMPHOCYTE% 27.4 % (17.0-45.0); MEAN CELL VOLUME 94.2 FL (83-96); MEAN CORPUSCULAR HEMOGLOBIN 32.6 PG (28-34); MEAN CORPUSCULAR HGB CONC 34.5 g/dL (30-36); MEAN PLATELET VOLUME 8.4 FL (6.5-11.5); MONOCYTE# 0.7 X10e3 (0-1.0); MONOCYTE% 11.3 % (3.0-12.0); NEUTROPHIL# 3.6 X10e3 (1.5-7.1); NEUTROPHIL% 57.2 % (40-75); PLATELET COUNT 108 X10e3 (140-420); RED BLOOD COUNT 3.31 X10e (3.90-5.60); RED CELL DISTRIBUTION WIDTH 14.5 % (11.0-15.5); WHITE BLOOD COUNT 6.2 X10e3 (4.0-10.5)
[2017-01-10 05:20] LABS: DIFF IND NO
[2017-01-10 06:01] LABS: BUN/CREATININE RATIO 5.45; CALCIUM SERUM 7.5 mg/dL (8.4-10.2); CREATININE SERUM 1.1 mg/dL (0.6-1.4); GLOM FILT RATE Estimated 77.3 mL/min (>60); MAGNESIUM 1.6 mg/dL (1.6-3.0); PHOSPHOROUS 2.7 mg/dL (2.5-4.6); POTASSIUM 3.4 mmol/L (3.5-5.1)
[2017-01-11 04:10] LABS: ARTERIAL BLD GAS O2 SATURATION 96.1 % (90.0-100.0); ARTERIAL BLOOD GAS ALLEN TEST NORMAL; ARTERIAL BLOOD GAS ART SITE RIGHT RADIAL; ARTERIAL BLOOD GAS CARBOXY HB 0.7 %sat (0.0-9.0); ARTERIAL BLOOD GAS DELIVERY VENT; ARTERIAL BLOOD GAS MET HB 0.6 %sat (0.0-2.0); ARTERIAL BLOOD GAS PCO2 39.4 mmHg (35.0-45.0); ARTERIAL BLOOD GAS PO2 83.8 mmHg (80.0-100); ARTERIAL BLOOD GAS VENT MODE AC; ARTERIAL BLOOD GAS pH 7.355 (7.350-7.450); ARTERIAL DRAW? YES
[2017-01-11 06:45] LABS: BASOPHIL% 0.3 % (0-2.5); EOSINOPHIL# 0.3 X10e3 (0-0.7); EOSINOPHIL% 4.8 % (0.0-7.0); HEMATOCRIT 28.1 % (38.0-50.0); HEMOGLOBIN 9.6 gm/dL (13.0-16.0); LYMPHOCYTE# 1.2 X10e3 (1.0-3.5); LYMPHOCYTE% 21.7 % (17.0-45.0); MEAN CELL VOLUME 95.4 FL (83-96); MEAN CORPUSCULAR HEMOGLOBIN 32.7 PG (28-34); MEAN CORPUSCULAR HGB CONC 34.3 g/dL (30-36); MEAN PLATELET VOLUME 8.9 FL (6.5-11.5); MONOCYTE# 0.8 X10e3 (0-1.0); MONOCYTE% 13.9 % (3.0-12.0); NEUTROPHIL# 3.3 X10e3 (1.5-7.1); NEUTROPHIL% 59.3 % (40-75); PLATELET COUNT 98 X10e3 (140-420); RED BLOOD COUNT 2.95 X10e (3.90-5.60); RED CELL DISTRIBUTION WIDTH 14.8 % (11.0-15.5); WHITE BLOOD COUNT 5.6 X10e3 (4.0-10.5)
[2017-01-11 06:55] LABS: ALBUMIN SERUM 2.6 g/dL (3.5-5.0); BILIRUBIN,TOTAL 0.5 mg/dL (0.2-2.0); CALCIUM SERUM 7.2 mg/dL (8.4-10.2); GLOM FILT RATE Estimated 86.8 mL/min (>60); MAGNESIUM 1.8 mg/dL (1.6-3.0); PHOSPHOROUS 2.6 mg/dL (2.5-4.6); POTASSIUM 3.4 mmol/L (3.5-5.1); PROTEIN TOTAL SERUM 4.9 g/dL (6.0-8.3)
[2017-01-11 07:20] LABS: DIFF IND YES
[2017-01-11 09:08] LABS: NUCLEATED RED BLOOD CELL 1 /100 (0)
[2017-01-11 09:09] LABS: ANISOCYTOSIS MOD; PLATELET ESTIMATE DECREASED (NORMAL)
[2017-01-11 09:10] LABS: SCHISTOCYTES PRESENT
[2017-01-12 03:47] LABS: ARTERIAL BLD GAS O2 SATURATION 98.8 % (90.0-100.0); ARTERIAL BLOOD GAS CARBOXY HB 0.8 %sat (0.0-9.0); ARTERIAL BLOOD GAS HCO3 23.6 mmol/L; ARTERIAL BLOOD GAS PCO2 40.8 mmHg (35.0-45.0); ARTERIAL BLOOD GAS pH 7.371 (7.350-7.450)
[2017-01-12 03:48] LABS: ARTERIAL BLOOD GAS ART SITE RIGHT BRACHIAL; ARTERIAL BLOOD GAS DELIVERY VENT; ARTERIAL BLOOD GAS VENT MODE A/C; ARTERIAL DRAW? YES
[2017-01-12 05:12] LABS: BASOPHIL% 0.4 % (0-2.5); EOSINOPHIL# 0.4 X10e3 (0-0.7); EOSINOPHIL% 5.2 % (0.0-7.0); HEMATOCRIT 30.7 % (38.0-50.0); HEMOGLOBIN 10.4 gm/dL (13.0-16.0); LYMPHOCYTE# 1.6 X10e3 (1.0-3.5); LYMPHOCYTE% 20.9 % (17.0-45.0); MEAN CELL VOLUME 96.6 FL (83-96); MEAN CORPUSCULAR HEMOGLOBIN 32.8 PG (28-34); MEAN PLATELET VOLUME 9.3 FL (6.5-11.5); MONOCYTE# 1.2 X10e3 (0-1.0); MONOCYTE% 15.7 % (3.0-12.0); NEUTROPHIL# 4.3 X10e3 (1.5-7.1); NEUTROPHIL% 57.8 % (40-75); PLATELET COUNT 126 X10e3 (140-420); RED BLOOD COUNT 3.18 X10e (3.90-5.60); WHITE BLOOD COUNT 7.5 X10e3 (4.0-10.5)
[2017-01-12 05:14] LABS: DIFF IND NO
[2017-01-12 05:32] LABS: ALBUMIN SERUM 2.9 g/dL (3.5-5.0); BILIRUBIN,TOTAL 0.6 mg/dL (0.2-2.0); CALCIUM SERUM 7.9 mg/dL (8.4-10.2); GLOM FILT RATE Estimated 86.8 mL/min (>60); MAGNESIUM 1.8 mg/dL (1.6-3.0); PROTEIN TOTAL SERUM 5.7 g/dL (6.0-8.3)
[2017-01-13 03:56] LABS: ARTERIAL BLD GAS O2 SATURATION 94.7 % (90.0-100.0); ARTERIAL BLOOD GAS CARBOXY HB 0.8 %sat (0.0-9.0); ARTERIAL BLOOD GAS HCO3 29.7 mmol/L; ARTERIAL BLOOD GAS MET HB 0.5 %sat (0.0-2.0); ARTERIAL BLOOD GAS PCO2 43.2 mmHg (35.0-45.0); ARTERIAL BLOOD GAS pH 7.446 (7.350-7.450)
[2017-01-13 04:00] LABS: ARTERIAL BLOOD GAS ALLEN TEST NORMAL; ARTERIAL BLOOD GAS ART SITE RIGHT RADIAL; ARTERIAL BLOOD GAS DELIVERY VENT; ARTERIAL BLOOD GAS PO2 70.3 mmHg (80.0-100); ARTERIAL BLOOD GAS VENT MODE AC; ARTERIAL DRAW? YES
[2017-01-13 05:10] LABS: BASOPHIL% 0.3 % (0-2.5); EOSINOPHIL# 0.3 X10e3 (0-0.7); HEMATOCRIT 27.3 % (38.0-50.0); HEMOGLOBIN 9.4 gm/dL (13.0-16.0); MEAN CORPUSCULAR HEMOGLOBIN 32.7 PG (28-34); MEAN CORPUSCULAR HGB CONC 34.4 g/dL (30-36); MEAN PLATELET VOLUME 8.8 FL (6.5-11.5); MONOCYTE# 1.3 X10e3 (0-1.0); MONOCYTE% 15.8 % (3.0-12.0); NEUTROPHIL# 4.7 X10e3 (1.5-7.1); NEUTROPHIL% 55.9 % (40-75); RED BLOOD COUNT 2.87 X10e (3.90-5.60); RED CELL DISTRIBUTION WIDTH 14.9 % (11.0-15.5); WHITE BLOOD COUNT 8.5 X10e3 (4.0-10.5)
[2017-01-13 05:11] LABS: PLATELET COUNT 199 X10e3 (140-420)
[2017-01-13 05:14] LABS: DIFF IND NO
[2017-01-13 05:52] LABS: ALBUMIN SERUM 3.2 g/dL (3.5-5.0); BILIRUBIN,TOTAL 0.6 mg/dL (0.2-2.0); BUN/CREATININE RATIO 8.33; CALCIUM SERUM 8.5 mg/dL (8.4-10.2); CREATININE SERUM 1.2 mg/dL (0.6-1.4); GLOM FILT RATE Estimated 69.6 mL/min (>60); PROTEIN TOTAL SERUM 6.6 g/dL (6.0-8.3)
[2017-01-14 04:05] LABS: ARTERIAL BLD GAS O2 SATURATION 97.1 % (90.0-100.0); ARTERIAL BLOOD GAS CARBOXY HB 0.8 %sat (0.0-9.0); ARTERIAL BLOOD GAS MET HB 0.4 %sat (0.0-2.0); ARTERIAL BLOOD GAS PCO2 36.5 mmHg (35.0-45.0); ARTERIAL BLOOD GAS PO2 90.9 mmHg (80.0-100); ARTERIAL BLOOD GAS pH 7.537 (7.350-7.450)
[2017-01-14 04:09] LABS: ARTERIAL BLOOD GAS ART SITE RIGHT BRACHIAL; ARTERIAL BLOOD GAS DELIVERY VENT; ARTERIAL BLOOD GAS VENT MODE AC; ARTERIAL DRAW? YES
[2017-01-14 06:05] LABS: BASOPHIL% 0.3 % (0-2.5); EOSINOPHIL# 0.2 X10e3 (0-0.7); EOSINOPHIL% 2.2 % (0.0-7.0); HEMATOCRIT 30.3 % (38.0-50.0); HEMOGLOBIN 10.3 gm/dL (13.0-16.0); LYMPHOCYTE# 1.3 X10e3 (1.0-3.5); LYMPHOCYTE% 16.1 % (17.0-45.0); MEAN CELL VOLUME 94.3 FL (83-96); MEAN CORPUSCULAR HGB CONC 33.9 g/dL (30-36); MEAN PLATELET VOLUME 8.5 FL (6.5-11.5); MONOCYTE# 1.7 X10e3 (0-1.0); MONOCYTE% 20.9 % (3.0-12.0); NEUTROPHIL% 60.5 % (40-75); PLATELET COUNT 174 X10e3 (140-420); RED BLOOD COUNT 3.21 X10e (3.90-5.60); WHITE BLOOD COUNT 8.2 X10e3 (4.0-10.5)
[2017-01-14 06:06] LABS: DIFF IND YES
[2017-01-14 06:31] LABS: ANISOCYTOSIS SL; PLATELET ESTIMATE NORMAL (NORMAL)
[2017-01-14 06:48] LABS: ALBUMIN SERUM 2.9 g/dL (3.5-5.0); BILIRUBIN,TOTAL 0.8 mg/dL (0.2-2.0); BUN/CREATININE RATIO 11.53; CALCIUM SERUM 8.3 mg/dL (8.4-10.2); CREATININE SERUM 1.3 mg/dL (0.6-1.4); GLOM FILT RATE Estimated 63.2 mL/min (>60); MAGNESIUM 1.9 mg/dL (1.6-3.0); POTASSIUM 3.7 mmol/L (3.5-5.1); PROTEIN TOTAL SERUM 5.6 g/dL (6.0-8.3)
[2017-01-15 05:43] LABS: BASOPHIL% 0.5 % (0-2.5); EOSINOPHIL# 0.2 X10e3 (0-0.7); EOSINOPHIL% 3.8 % (0.0-7.0); HEMATOCRIT 29.8 % (38.0-50.0); HEMOGLOBIN 10.3 gm/dL (13.0-16.0); LYMPHOCYTE# 1.5 X10e3 (1.0-3.5); MEAN CORPUSCULAR HEMOGLOBIN 32.4 PG (28-34); MEAN CORPUSCULAR HGB CONC 34.4 g/dL (30-36); MEAN PLATELET VOLUME 8.1 FL (6.5-11.5); MONOCYTE# 1.2 X10e3 (0-1.0); MONOCYTE% 20.3 % (3.0-12.0); NEUTROPHIL# 3.1 X10e3 (1.5-7.1); NEUTROPHIL% 50.4 % (40-75); PLATELET COUNT 218 X10e3 (140-420); RED BLOOD COUNT 3.17 X10e (3.90-5.60); RED CELL DISTRIBUTION WIDTH 14.4 % (11.0-15.5); WHITE BLOOD COUNT 6.1 X10e3 (4.0-10.5)
[2017-01-15 06:05] LABS: CALCIUM SERUM 8.6 mg/dL (8.4-10.2); DIFF IND NO; GLOM FILT RATE Estimated 86.8 mL/min (>60); MAGNESIUM 2.2 mg/dL (1.6-3.0); POTASSIUM 3.5 mmol/L (3.5-5.1)
[2017-01-15 11:15] LABS: ARTERIAL BLD GAS O2 SATURATION 96.9 % (90.0-100.0); ARTERIAL BLOOD GAS HCO3 28.9 mmol/L; ARTERIAL BLOOD GAS MET HB 1.1 %sat (0.0-2.0); ARTERIAL BLOOD GAS PCO2 40.1 mmHg (35.0-45.0); ARTERIAL BLOOD GAS pH 7.467 (7.350-7.450)
[2017-01-15 11:16] LABS: ARTERIAL BLOOD GAS ART SITE RIGHT BRACHIAL; ARTERIAL BLOOD GAS DELIVERY VENT; ARTERIAL BLOOD GAS VENT MODE CPAP; ARTERIAL DRAW? YES
[2017-01-15 23:52] LABS: ARTERIAL BLD GAS O2 SATURATION 91.8 % (90.0-100.0); ARTERIAL BLOOD GAS CARBOXY HB 0.8 %sat (0.0-9.0); ARTERIAL BLOOD GAS HCO3 27.7 mmol/L; ARTERIAL BLOOD GAS MET HB 0.7 %sat (0.0-2.0); ARTERIAL BLOOD GAS PCO2 36.6 mmHg (35.0-45.0); ARTERIAL BLOOD GAS pH 7.488 (7.350-7.450)
[2017-01-15 23:53] LABS: ARTERIAL BLOOD GAS PO2 63.9 mmHg (80.0-100)
[2017-01-15 23:54] LABS: ARTERIAL BLOOD GAS ALLEN TEST NORMAL; ARTERIAL BLOOD GAS ART SITE RIGHT BRACHIAL; ARTERIAL BLOOD GAS DELIVERY NASAL CANNULA; ARTERIAL DRAW? YES
[2017-01-16 05:42] LABS: BASOPHIL# 0.1 X10e3 (0-0.3); BASOPHIL% 0.4 % (0-2.5); EOSINOPHIL# 0.2 X10e3 (0-0.7); EOSINOPHIL% 1.5 % (0.0-7.0); HEMATOCRIT 32.7 % (38.0-50.0); HEMOGLOBIN 10.9 gm/dL (13.0-16.0); LYMPHOCYTE# 1.9 X10e3 (1.0-3.5); LYMPHOCYTE% 14.5 % (17.0-45.0); MEAN CELL VOLUME 94.5 FL (83-96); MEAN CORPUSCULAR HEMOGLOBIN 31.6 PG (28-34); MEAN CORPUSCULAR HGB CONC 33.5 g/dL (30-36); MEAN PLATELET VOLUME 8.4 FL (6.5-11.5); MONOCYTE# 2.2 X10e3 (0-1.0); MONOCYTE% 16.8 % (3.0-12.0); NEUTROPHIL# 8.7 X10e3 (1.5-7.1); NEUTROPHIL% 66.8 % (40-75); PLATELET COUNT 309 X10e3 (140-420); RED BLOOD COUNT 3.46 X10e (3.90-5.60); RED CELL DISTRIBUTION WIDTH 14.3 % (11.0-15.5)
[2017-01-16 05:52] LABS: DIFF IND NO
[2017-01-16 06:18] LABS: BUN/CREATININE RATIO 10.76; CALCIUM SERUM 8.8 mg/dL (8.4-10.2); CREATININE SERUM 1.3 mg/dL (0.6-1.4); GLOM FILT RATE Estimated 63.2 mL/min (>60); MAGNESIUM 1.8 mg/dL (1.6-3.0); POTASSIUM 3.5 mmol/L (3.5-5.1)
[2017-01-17 05:39] LABS: BASOPHIL# 0.1 X10e3 (0-0.3); BASOPHIL% 0.5 % (0-2.5); EOSINOPHIL# 0.4 X10e3 (0-0.7); EOSINOPHIL% 3.1 % (0.0-7.0); HEMATOCRIT 30.1 % (38.0-50.0); HEMOGLOBIN 9.9 gm/dL (13.0-16.0); LYMPHOCYTE# 2.3 X10e3 (1.0-3.5); LYMPHOCYTE% 16.2 % (17.0-45.0); MEAN CELL VOLUME 94.4 FL (83-96); MEAN CORPUSCULAR HEMOGLOBIN 31.2 PG (28-34); MEAN CORPUSCULAR HGB CONC 33.1 g/dL (30-36); MONOCYTE# 1.5 X10e3 (0-1.0); MONOCYTE% 10.9 % (3.0-12.0); NEUTROPHIL# 9.7 X10e3 (1.5-7.1); NEUTROPHIL% 69.3 % (40-75); PLATELET COUNT 332 X10e3 (140-420); RED BLOOD COUNT 3.18 X10e (3.90-5.60); RED CELL DISTRIBUTION WIDTH 14.4 % (11.0-15.5); WHITE BLOOD COUNT 13.9 X10e3 (4.0-10.5)
[2017-01-17 06:07] LABS: DIFF IND NO
[2017-01-17 06:25] LABS: BUN/CREATININE RATIO 13.63; CALCIUM SERUM 8.5 mg/dL (8.4-10.2); CREATININE SERUM 1.1 mg/dL (0.6-1.4); GLOM FILT RATE Estimated 77.3 mL/min (>60); POTASSIUM 3.7 mmol/L (3.5-5.1)
[2017-01-18 04:46] LABS: BASOPHIL% 0.5 % (0-2.5); DIFF IND NO; EOSINOPHIL# 0.5 X10e3 (0-0.7); EOSINOPHIL% 5.7 % (0.0-7.0); HEMATOCRIT 27.5 % (38.0-50.0); HEMOGLOBIN 9.5 gm/dL (13.0-16.0); LYMPHOCYTE# 1.8 X10e3 (1.0-3.5); LYMPHOCYTE% 21.2 % (17.0-45.0); MEAN CELL VOLUME 93.1 FL (83-96); MEAN CORPUSCULAR HEMOGLOBIN 32.1 PG (28-34); MEAN CORPUSCULAR HGB CONC 34.5 g/dL (30-36); MEAN PLATELET VOLUME 7.5 FL (6.5-11.5); MONOCYTE# 1.1 X10e3 (0-1.0); MONOCYTE% 12.8 % (3.0-12.0); NEUTROPHIL# 5.1 X10e3 (1.5-7.1); NEUTROPHIL% 59.8 % (40-75); PLATELET COUNT 344 X10e3 (140-420); RED BLOOD COUNT 2.96 X10e (3.90-5.60); RED CELL DISTRIBUTION WIDTH 14.6 % (11.0-15.5); WHITE BLOOD COUNT 8.5 X10e3 (4.0-10.5)
[2017-01-18 05:13] LABS: CALCIUM SERUM 8.5 mg/dL (8.4-10.2); GLOM FILT RATE Estimated 86.8 mL/min (>60); POTASSIUM 4.2 mmol/L (3.5-5.1)
[2017-01-19 05:38] LABS: BASOPHIL% 0.5 % (0-2.5); EOSINOPHIL# 0.3 X10e3 (0-0.7); EOSINOPHIL% 5.5 % (0.0-7.0); HEMATOCRIT 27.5 % (38.0-50.0); HEMOGLOBIN 9.5 gm/dL (13.0-16.0); LYMPHOCYTE# 1.6 X10e3 (1.0-3.5); LYMPHOCYTE% 26.6 % (17.0-45.0); MEAN CELL VOLUME 93.3 FL (83-96); MEAN CORPUSCULAR HEMOGLOBIN 32.3 PG (28-34); MEAN CORPUSCULAR HGB CONC 34.6 g/dL (30-36); MEAN PLATELET VOLUME 7.4 FL (6.5-11.5); MONOCYTE# 0.5 X10e3 (0-1.0); MONOCYTE% 8.6 % (3.0-12.0); NEUTROPHIL# 3.6 X10e3 (1.5-7.1); NEUTROPHIL% 58.8 % (40-75); PLATELET COUNT 366 X10e3 (140-420); RED BLOOD COUNT 2.95 X10e (3.90-5.60); RED CELL DISTRIBUTION WIDTH 14.2 % (11.0-15.5); WHITE BLOOD COUNT 6.1 X10e3 (4.0-10.5)
[2017-01-19 05:39] LABS: DIFF IND NO
[2017-01-19 06:13] LABS: BUN/CREATININE RATIO 6.66; CALCIUM SERUM 8.7 mg/dL (8.4-10.2); CREATININE SERUM 0.9 mg/dL (0.6-1.4); GLOM FILT RATE Estimated 98.5 mL/min (>60); POTASSIUM 4.8 mmol/L (3.5-5.1)
[2017-01-20 05:11] LABS: HEMATOCRIT 30.6 % (38.0-50.0); HEMOGLOBIN 10.4 gm/dL (13.0-16.0); MEAN CELL VOLUME 93.2 FL (83-96); MEAN CORPUSCULAR HEMOGLOBIN 31.5 PG (28-34); MEAN CORPUSCULAR HGB CONC 33.8 g/dL (30-36); MEAN PLATELET VOLUME 7.5 FL (6.5-11.5); RED BLOOD COUNT 3.28 X10e (3.90-5.60); RED CELL DISTRIBUTION WIDTH 14.4 % (11.0-15.5); WHITE BLOOD COUNT 8.3 X10e3 (4.0-10.5)
[2017-01-20 06:38] LABS: BUN/CREATININE RATIO 8.18; CALCIUM SERUM 9.2 mg/dL (8.4-10.2); CREATININE SERUM 1.1 mg/dL (0.6-1.4); GLOM FILT RATE Estimated 77.3 mL/min (>60); POTASSIUM 4.3 mmol/L (3.5-5.1)
[2017-01-21 09:47] LABS: MAGNESIUM 1.7 mg/dL (1.6-3.0); POTASSIUM 4.5 mmol/L (3.5-5.1)
[2017-01-22 06:06] LABS: HEMATOCRIT 32.2 % (38.0-50.0); MEAN CELL VOLUME 92.5 FL (83-96); MEAN CORPUSCULAR HEMOGLOBIN 31.5 PG (28-34); MEAN CORPUSCULAR HGB CONC 34.1 g/dL (30-36); MEAN PLATELET VOLUME 7.7 FL (6.5-11.5); RED BLOOD COUNT 3.48 X10e (3.90-5.60); RED CELL DISTRIBUTION WIDTH 14.2 % (11.0-15.5); WHITE BLOOD COUNT 10.2 X10e3 (4.0-10.5)
[2017-01-22 06:51] LABS: ALBUMIN SERUM 3.5 g/dL (3.5-5.0); BILIRUBIN,TOTAL 0.3 mg/dL (0.2-2.0); BUN/CREATININE RATIO 9.28; CALCIUM SERUM 8.7 mg/dL (8.4-10.2); CREATININE SERUM 1.4 mg/dL (0.6-1.4); GLOM FILT RATE Estimated 57.8 mL/min (>60); MAGNESIUM 2.1 mg/dL (1.6-3.0); POTASSIUM 3.8 mmol/L (3.5-5.1)
[2017-01-23 05:57] LABS: BUN/CREATININE RATIO 11.53; CALCIUM SERUM 8.6 mg/dL (8.4-10.2); CREATININE SERUM 1.3 mg/dL (0.6-1.4); GLOM FILT RATE Estimated 63.2 mL/min (>60); POTASSIUM 4.1 mmol/L (3.5-5.1)
[2017-01-23 06:30] LABS: HEMATOCRIT 30.7 % (38.0-50.0); HEMOGLOBIN 10.1 gm/dL (13.0-16.0); MEAN CELL VOLUME 95.1 FL (83-96); MEAN CORPUSCULAR HEMOGLOBIN 31.4 PG (28-34); MEAN PLATELET VOLUME 7.6 FL (6.5-11.5); RED BLOOD COUNT 3.23 X10e (3.90-5.60); RED CELL DISTRIBUTION WIDTH 14.4 % (11.0-15.5); WHITE BLOOD COUNT 7.7 X10e3 (4.0-10.5)
== END 2017-01-23 18:59 | DRG 100 ==
LOC: CED 09:41 → CICCU3 12:21 → CEDOF 12:21 → CED 12:46 → CEDOF 12:46 → CICCU3 14:04 → CEDOF 14:04 → CICCU3 01-09 07:44 → CICCU2 01-10 10:56 → C3A PCU 01-19 13:34 → C2A 01-21 10:49
PROVIDERS: Emergency Medicine; Family Medicine; Internal Medicine; Internal Medicine Pulmonary Disease
PROC: 0BH17EZ Insertion of Endotracheal Airway into Trachea, Via Natural or Artificial Opening (ICD-10-PCS; principal; 2017-01-08)
PROC: 5A1935Z Respiratory Ventilation, Less than 24 Consecutive Hours (ICD-10-PCS; 2017-01-08)
PROC: 05H533Z Insertion of Infusion Device into Right Subclavian Vein, Percutaneous Approach (ICD-10-PCS; 2017-01-08)
PROC: 5A1955Z Respiratory Ventilation, Greater than 96 Consecutive Hours (ICD-10-PCS; 2017-01-09)
PROC: 0BH17EZ Insertion of Endotracheal Airway into Trachea, Via Natural or Artificial Opening (ICD-10-PCS; 2017-01-09)
PROC: B24BYZZ Ultrasonography of Heart with Aorta using Other Contrast (ICD-10-PCS; 2017-01-10)
DX: G40.901 Epilepsy, unspecified, not intractable, with status epilepticus (principal); J96.01 Acute respiratory failure with hypoxia; J69.0 Pneumonitis due to inhalation of food and vomit; G92 Toxic encephalopathy; A41.9 Sepsis, unspecified organism; N17.9 Acute kidney failure, unspecified; J44.1 Chronic obstructive pulmonary disease with (acute) exacerbation; E87.2 Acidosis; F10.231 Alcohol dependence with withdrawal delirium; N39.0 Urinary tract infection, site not specified; F10.27 Alcohol dependence with alcohol-induced persisting dementia; G62.9 Polyneuropathy, unspecified; I48.91 Unspecified atrial fibrillation; N40.0 Benign prostatic hyperplasia without lower urinary tract symptoms; I73.9 Peripheral vascular disease, unspecified; Z88.0 Allergy status to penicillin; Z88.1 Allergy status to other antibiotic agents; Z91.14 Patient's other noncompliance with medication regimen; B95.2 Enterococcus as the cause of diseases classified elsewhere; D64.9 Anemia, unspecified; I07.1 Rheumatic tricuspid insufficiency
CPT/HCPCS: 31500; 36415; 36556; 36600; 51702; 70450; 71010; 74000; 80048; 80053; 80076; 80185; 80186; 80307; 81003; 82550; 82553; 82607; 82803; 83605; 83735; 83880; 84100; 84132; 84439; 84443; 84484; 85025; 85027; 85610; 85730; 86592; 87040; 87070; 87086; 87088; 87186; 87205; 87493; 90732; 92526; 92610; 93005; 93306; 94002; 94003; 94640; 94760; 94761; 96365; 96375; 97110; 97116; 97162; 97166; 97530; 97535; 99291; 99292; C9113; C9254; G0009; G0480; G8978-GP; G8979-GP; G8987-GO; G8988-GO; G8996-GN; G8997-GN; G8998-GN; J0330; J0360; J1165; J1650; J1953; J2060; J2250; J3370; J3411; J3475; J3490; J7042; Q2009